=== PATIENT | male | born 1955 | race Caucasian/White ===

== ENCOUNTER 2024-01-10 06:23 | Day surgery (SDC) | payer OTHER, SELFPAY ==
[2023-12-26 10:15] VITALS: BMI 26.6
[2023-12-26 10:38] LABS: % Basophils 0.7 % (0-2); % Eosinophils 1.6 % (0-6); % Immature Granulocytes 0.3 % (0-0.5); % Lymphocytes 30.9 % (20.5-51.1); % Monocytes 9.2 % (1.7-9.3); % Neutrophils 57.3 % (42.2-75.2); Absolute Basophils 0.1 10^3/uL (0-0.2); Absolute Eosinophils 0.1 10^3/uL (0-0.7); Absolute Lymphocytes 2.1 10^3/uL (1.2-3.4); Absolute Monocytes 0.6 10^3/uL (0.1-0.6); Absolute Neutrophils 3.9 10^3/uL (1.4-6.5); Hematocrit 46.2 % (39.0-52.0); Hemoglobin 16.8 g/dL (13.0-18.0); Mean Corp Hgb Conc. 36.4 g/dL (33.0-37.0); Mean Corpuscular Hgb 33.5 pg (27.0-31.0); Mean Platelet Volume 9.4 fL (7.4-10.4); Nucleated Red Blood Cells % 0 % (-); Platelet Count 198 10^3/uL (130-400); Red Blood Cell Count 5.02 10^6/uL (4.70-6.10); Red Cell Dist. Width 12.3 % (11.5-14.5); White Blood Cell Count 6.8 10^3/uL (4.8-10.8)
[2023-12-26 10:51] LABS: ALT (SGPT) 25 U/L (0-50); AST (SGOT) 27 U/L (17-59); Albumin 4.2 g/dl (3.5-5.0); Alkaline Phosphatase 68 U/L (38-126); Blood Urea Nitrogen 13 mg/dl (9-20); Calcium 9.3 mg/dl (8.4-10.2); Carbon Dioxide 24 mmol/L (22-30); Chloride 109 mmol/L (98-107); Estimated Creatinine Clearance 50 ml/min; Glucose 103 mg/dl (70-99); Potassium 4.3 mmol/L (3.5-5.1); Sodium 140 mmol/L (135-145); Total Bilirubin 1.3 mg/dl (0.2-1.3); Total Protein 7.1 g/dl (6.3-8.2); eGFR > 60.00
[2024-01-10] VITALS (9 sets, daily range): BP systolic 95–156; BP diastolic 65–87; BMI 26.6
--- NOTE | 2024-01-10 07:00 | ITS.CL.CATH ---
Child'S Nurse - Catheterization
Cardiac Catheterization
Procedure Report:
CARDIAC CATHETERIZATION REPORT
Date of Procedure: 01/10/2024
Referring: Shala Denney MD
Indication: Severe , chest pain with abnormal stress test
HEMODYNAMIC DATA
AO: 122/72
LV: Not done
LEFT VENTRICULOGRAPHY: Not performed. There is severe calcification of the aortic annulus and leaflets noted on fluoroscopy
CORONARY ANGIOGRAPHY
Dominance: Right
Left Main: Normal
LAD: Smooth 70-80% mid LAD stenosis immediately distal to the takeoff of the large second diagonal branch. The remainder of the LAD proper has mild luminal irregularities. The large D1 has 30% proximal stenosis.
Circumflex: Small distribution vessel giving rise to a small OM1, a medium sized OM 2 and a small OM 3. There is no significant disease in the circumflex system.
RCA: Large dominant vessel with an eccentric 70% mid RCA stenosis on a highly angulated segment. The large PDA and large posterolateral system have mild luminal irregularities.
Closure Device: None-the procedure was performed via the right radial artery. The Basil's test was normal prior to the procedure.
Radiation (mGy): 446
DAP (cm2.Gy): 50.6
Fluoroscopy time: 9.7 minutes
CONCLUSIONS
1: Severe aortic stenosis (mean gradient 55 mmHg by echo) not invasively evaluated.
2: Double vessel CAD as described
3. Recommend surgical AVR/CABG x 2 (LAD, RCA)
4. The patient has been strongly advised to avoid all strenuous activity until cardiac surgery has been accomplished
Copy to: Shala Denney MD, Paul Sparks MD
Skinny Ferguson MD, [facility], [facility]
[2024-01-10] MEDS: LOW STRENGTH ASPIRIN 81 MG PO (07:05)
[2024-01-10] MEDS: NSS 204 ML IV (07:08)
== END 2024-01-10 11:00 | disposition home or self-care (01) ==
LOC: CATH 06:23
PROVIDERS: ATTENDING PHYSICIAN Internal Medicine Cardiovascular Disease; OTHER PHYSICIAN Internal Medicine Cardiovascular Disease
DX: I35.0 Nonrheumatic aortic (valve) stenosis (principal); I25.10 Atherosclerotic heart disease of native coronary artery without angina pectoris; I10 Essential (primary) hypertension; E78.5 Hyperlipidemia, unspecified; M10.9 Gout, unspecified; K57.90 Diverticulosis of intestine, part unspecified, without perforation or abscess without bleeding; R07.9 Chest pain, unspecified; R94.39 Abnormal result of other cardiovascular function study
CPT/HCPCS: 36415; 80053; 85025; 93005; 93306; 93454; C1894; Q9967

== ENCOUNTER 2024-02-13 04:58 | Inpatient (IN) | payer OTHER, SELFPAY ==
[2024-01-24 11:58] VITALS: BMI 26.9
[2024-01-24 12:52] LABS: % Basophils 0.6 % (0-2); % Eosinophils 1.2 % (0-6); % Immature Granulocytes 0.5 % (0-0.5); % Lymphocytes 25.1 % (20.5-51.1); % Monocytes 8.1 % (1.7-9.3); % Neutrophils 64.5 % (42.2-75.2); Absolute Eosinophils 0.1 10^3/uL (0-0.7); Absolute Lymphocytes 1.6 10^3/uL (1.2-3.4); Absolute Monocytes 0.5 10^3/uL (0.1-0.6); Absolute Neutrophils 4.1 10^3/uL (1.4-6.5); Hematocrit 41.3 % (39.0-52.0); Hemoglobin 14.8 g/dL (13.0-18.0); Mean Corp Hgb Conc. 35.8 g/dL (33.0-37.0); Mean Corpuscular Hgb 32.4 pg (27.0-31.0); Mean Corpuscular Volume 90.4 fL (80.0-94.0); Mean Platelet Volume 9.6 fL (7.4-10.4); Nucleated Red Blood Cells % 0 % (-); Platelet Count 193 10^3/uL (130-400); Red Blood Cell Count 4.57 10^6/uL (4.70-6.10); Red Cell Dist. Width 12.5 % (11.5-14.5); White Blood Cell Count 6.4 10^3/uL (4.8-10.8)
[2024-01-24 12:57] LABS: Urine Albumin Negative (Neg - Trace); Urine Bilirubin Negative (Negative); Urine Character Clear (Clear); Urine Color Yellow; Urine Glucose Negative (Negative); Urine Ketone Negative (Negative); Urine Leukocyte Negative (Negative); Urine Nitrite Negative (Negative); Urine Occult Blood Negative (Negative); Urine Urobilinogen Negative (Neg - 1+)
[2024-01-24 13:02] LABS: INR 1.08; PT 13.8 Sec (11.4-14.6)
[2024-01-24 13:04] LABS: APTT 25.4 Sec (23.4-35.0)
[2024-01-24 13:05] LABS: ALT (SGPT) 27 U/L (0-50); AST (SGOT) 33 U/L (17-59); Albumin 4.3 g/dl (3.5-5.0); Alkaline Phosphatase 67 U/L (38-126); Blood Urea Nitrogen 11 mg/dl (9-20); Carbon Dioxide 26 mmol/L (22-30); Chloride 108 mmol/L (98-107); Direct Bilirubin 0.1 mg/dl (0.0-0.4); Estimated Creatinine Clearance 55 ml/min; Glucose 91 mg/dl (70-99); Potassium 3.7 mmol/L (3.5-5.1); Sodium 140 mmol/L (135-145); Total Bilirubin 1.5 mg/dl (0.2-1.3); Total Protein 7.2 g/dl (6.3-8.2); eGFR > 60.00
[2024-01-24 13:08] LABS: Glycohemoglobin (HgbA1c) 5.6 % (4.0-5.6)
--- NOTE | 2024-01-24 13:48 | CM ---
Met with Mr. Jimbo Adams in [facility]. He states prior to admission he resides alone in a spilt level home. He states he has six steps to get to each level. His bedroom and full bathroom are on the second floor. He states prior to admission he was
independent with ambulation and adls. He states prior to admission he does not have any DME in the home. He states he has a prescription plan and uses [facility]. He states his girlfriend and friends he can call if he will needs anything.
The discharge plan is to return home with her girlfriend and friends support and a home visit by the Cardiothoracic Transitional Care Nurse when medically stable.
We reviewed pre-op and post-op routines. We reviewed the shower instructions. He has the soap, written instructions and the Cardiothoracic Surgery Educational Booklet. We also reviewed restrictions including sternal precautions and driving
restrictions. We also discussed a home visit by the Cardiothoracic Transitional Care Nurse. He is agreeable to a home visit. The plan is AVR/CABG on Tuesday02/13/24
[2024-02-13] VITALS (17 sets, daily range): BP systolic 83–191; BP diastolic 65–127; BMI 26.3
[2024-02-13] MEDS: PROTONIX 40 MG PO (05:51)
[2024-02-13] MEDS: LOPRESSOR 25 MG PO (05:52)
[2024-02-13] MEDS: BACTROBAN 2% OINTMENT 1 APPLIC NASAL ×2 (05:52→19:59)
[2024-02-13] MEDS: MAGNESIUM OXIDE 500 MG PO (05:52)
--- NOTE | 2024-02-13 06:06 | PTCARENOTE ---
pt admitted to 2262 - admits NPO since midnight and 2 CHG showers at home. full admission done, BP high B/L PA notified. pt clipped, washed with CHG wipes, meds given. awaiting CVOR.
[2024-02-13 07:06] LABS: ACT+ - POC 104 Seconds (82-134)
[2024-02-13 07:09] LABS: B.E. - POC -3.8 mmol/L; Glucose - POC 108 mg/dl (65-99); HCO3 - POC 22 mmol/L (21-29); Hematocrit - POC 38 % PCV (42-52); Hemodilution- POC Yes; Ionized Calcium - POC 1.15 mmol/L (1.12-1.27); O2 Saturation %Calculated-POC 99.9 5 (92-96); PCO2 - POC 44 mmHg (35-45); PO2 - POC 299 mmHg (80-100); Potassium - POC 3.6 mmol/L (3.6-5.0); Sodium - POC 146 mmol/L (135-145); pH - POC 7.32 (7.35-7.45)
[2024-02-13 07:50] LABS: Urine Albumin Negative (Neg - Trace); Urine Bilirubin Negative (Negative); Urine Character Clear (Clear); Urine Color Yellow; Urine Glucose Negative (Negative); Urine Ketone Negative (Negative); Urine Leukocyte Negative (Negative); Urine Nitrite Negative (Negative); Urine Occult Blood Negative (Negative); Urine Urobilinogen Negative (Neg - 1+)
[2024-02-13 09:17] LABS: ACT+ - POC 584 Seconds (82-134)
[2024-02-13 09:52] LABS: B.E. - POC 1.5 mmol/L; Glucose - POC 118 mg/dl (65-99); HCO3 - POC 25 mmol/L (21-29); Hematocrit - POC 30 % PCV (42-52); Hemodilution- POC Yes; Hemoglobin Calculated - POC 10.3; Ionized Calcium - POC 0.91 mmol/L (1.12-1.27); O2 Saturation %Calculated-POC 99.9 5 (92-96); PCO2 - POC 36 mmHg (35-45); PO2 - POC 239 mmHg (80-100); Potassium - POC 5.9 mmol/L (3.6-5.0); Sodium - POC 141 mmol/L (135-145); pH - POC 7.46 (7.35-7.45)
[2024-02-13 10:01] LABS: ACT+ - POC 777 Seconds (82-134)
[2024-02-13 10:23] LABS: B.E. - POC 1.6 mmol/L; Glucose - POC 129 mg/dl (65-99); HCO3 - POC 26 mmol/L (21-29); Hematocrit - POC 30 % PCV (42-52); Hemodilution- POC Yes; Hemoglobin Calculated - POC 10.1; Ionized Calcium - POC 0.98 mmol/L (1.12-1.27); PCO2 - POC 36 mmHg (35-45); PO2 - POC 351 mmHg (80-100); Potassium - POC 6.2 mmol/L (3.6-5.0); Sodium - POC 142 mmol/L (135-145); pH - POC 7.45 (7.35-7.45)
[2024-02-13 10:28] LABS: ACT+ - POC 605 Seconds (82-134)
[2024-02-13 11:03] LABS: B.E. - POC 1.4 mmol/L; Glucose - POC 147 mg/dl (65-99); HCO3 - POC 24 mmol/L (21-29); Hematocrit - POC 30 % PCV (42-52); Hemodilution- POC Yes; Hemoglobin Calculated - POC 10.2; Ionized Calcium - POC 0.95 mmol/L (1.12-1.27); PCO2 - POC 28 mmHg (35-45); PO2 - POC 319 mmHg (80-100); Potassium - POC 5.5 mmol/L (3.6-5.0); Sodium - POC 141 mmol/L (135-145); pH - POC 7.53 (7.35-7.45)
[2024-02-13 11:04] LABS: ACT+ - POC 493 Seconds (82-134)
--- NOTE | 2024-02-13 11:08 | CM ---
Addendum entered by Ramonita Quezada RN 02/13/24 11:14:
Patient is in the OR today
Original Note:
Chart reviewed. Patient is independent of ADLS, lives alone in a split level, 6 SHIRIN, 0 DME. Patient with supportive girlfriend and friends. Plan is for the patient to return home CT Transitional RN. CM to follow
[2024-02-13 11:37] LABS: Glucose - POC 148 mg/dl (65-99); HCO3 - POC 22 mmol/L (21-29); Hematocrit - POC 28 % PCV (42-52); Hemodilution- POC Yes; Hemoglobin Calculated - POC 9.6; Ionized Calcium - POC 0.99 mmol/L (1.12-1.27); PCO2 - POC 31 mmHg (35-45); PO2 - POC 405 mmHg (80-100); Potassium - POC 4.8 mmol/L (3.6-5.0); Sodium - POC 141 mmol/L (135-145); pH - POC 7.46 (7.35-7.45)
[2024-02-13 11:41] LABS: ACT+ - POC 476 Seconds (82-134)
[2024-02-13 12:33] LABS: ACT+ - POC 112 Seconds (82-134)
[2024-02-13 12:35] LABS: B.E. - POC -4.6 mmol/L; Glucose - POC 138 mg/dl (65-99); HCO3 - POC 20 mmol/L (21-29); Hematocrit - POC 26 % PCV (42-52); Hemodilution- POC Yes; Hemoglobin Calculated - POC 8.9; Ionized Calcium - POC 1.46 mmol/L (1.12-1.27); O2 Saturation %Calculated-POC 99.9 5 (92-96); PCO2 - POC 36 mmHg (35-45); PO2 - POC 285 mmHg (80-100); Potassium - POC 3.8 mmol/L (3.6-5.0); Sodium - POC 144 mmol/L (135-145); pH - POC 7.36 (7.35-7.45)
--- NOTE | 2024-02-13 13:14 | W.CVOR.SURPR ---
CVOR Surgeon Immed Pre Op
-
I have examined this patient prior to performance of the scheduled procedure.
The patient's condition is unchanged from the time of the dictated/written History and
Physical and the patient is able to undergo the scheduled procedure.
--- NOTE | 2024-02-13 13:14 | W.IMMPOSTOP ---
Addendum entered and electronically signed by Paul Sparks MD 02/13/24 14:32:
[id number]
Original Note:
Surgical Immed Post Op Note
-
CARDIAC SURGERY OPERATIVE NOTE:
Preoperative Dx:
2V CAD
Severe aortic stenosis
Postoperative Dx:
Same
Procedures:
1) Median sternotomy
2) Takedown of KATEY (narrow pedicle)
3) Endoscopic harvest/prep of RLE GSV
4) CABG x 2
5) AVR (#27 Inspiris)
Surgeon:
Paul Sparks M.D.
Assistants:
Brianne Gee P.A.-C.; cutting table operator first throughout; endoscopic harvest/prep of RLE GSV, chest closure ([id number])
Shabbir Rosario P.A.-C.; closure of RLE incisions; chest closure ([id number])
Anesthesia:
Mauricio Barker M.D.
Perfusion:
Kristy CristobalPSoraya; XC: 131min, CPB: 155min
Implants:
Monae [employer], INSPIRIS RESILIA; 27mm, Model [id number]; SN: [id number]
Epicardial V-wire x 1
CT x 4 (B/L pleural, inferior mediastinal, superior mediastinal)
Sternal wires x 10
Findings:
KATEY was healthy vessel w/ very brisk flow; ELD 1.5mm
GSV was healthy conduit w/ ELD 2.5-3.25mm
Apical LAD was visible on epicardial surface, mid-LAD was under approximately 7.5mm of epicardial adipose. Healthy adames at midpoint anastomosis. ELD 2.5mm
PDA was visible on epicardial surface, healthy adames at proximal anastomosis. ELD 2.25mm
AV was trileaflet w/ extensive leaflet calcifications. The RCC and LCC had partial fusion along the commissure. There was minor circumferential annular extension
AVR secured w/ 19 - interrupted, pledgetted sutures & CorKnot
Post-KHADAR w/ LVEF 50% (unchanged) w/o RWMA, AVR is well-seated w/o PVL/AI, mean gradient 4mmHg, trace MR, normal RV
Excellent flow in both grafts
Complications:
None
Condition:
72 sinus w/ isoelectric STs. 96/63. 31/18. CVP 14. 99%
GTTS: dobutmine 3, levophed 3
Stable/guarded to CVICU
[2024-02-13 13:32] LABS: B.E. - POC -2.2 mmol/L; Glucose - POC 110 mg/dl (65-99); HCO3 - POC 24 mmol/L (21-29); Hematocrit - POC 25 % PCV (42-52); Hemodilution- POC No; Hemoglobin Calculated - POC 8.4; Ionized Calcium - POC 1.22 mmol/L (1.12-1.27); O2 Saturation %Calculated-POC 62.8 5 (92-96); PCO2 - POC 46 mmHg (35-45); PO2 - POC 35 mmHg (80-100); Potassium - POC 3.9 mmol/L (3.6-5.0); Sodium - POC 146 mmol/L (135-145); pH - POC 7.33 (7.35-7.45)
[2024-02-13 13:55] LABS: Glucose - Point of Care 113 mg/dl (70-99)
[2024-02-13 14:07] LABS: B.E. -0.7 mmol/L; HCO3 22.9 mmol/L (21-28); Ionized Calcium 1.17 mMOL/L (1.15-1.33); O2 Saturation % 99.8 % (94-98); PCO2 33 mmHg (35-48); PO2 160 mmHg (83-108); Potassium 3.9 mMOL/L (3.5-5.1); Sodium 142 mMOL/L (136-145); pH 7.45 (7.35-7.45)
[2024-02-13 14:10] LABS: Hematocrit 25.4 % (39.0-52.0); Hemoglobin 9.2 g/dL (13.0-18.0); Platelet Count 78 10^3/uL (130-400)
--- NOTE | 2024-02-13 14:12 | PTCARENOTE ---
received pt from the CVOR into 2261, pt received intubated and sedated, sinus rhythm on tele w HR 80's, epicardial V wire for backup, + peripheral pulses, no edema noted. Lungs CTA, #8 ETT/23cm @ right lip. VENT SETTINGS: 60%/500/15/+5, POX 99%.
Right IJ cordis w swan floated to 46, CO 2.82 CI 1.66 PAP 30/19, CVP 15. Left radial carolina leveled and zeroed. CT x4 w minimal amount of red drainage, campuzano catheter draining pink tinged urine.
DRIPS:
Precedex 0.5mcg/kg/hr
Dobutamine 3mcg/kg/min
Insulin titrated per glycemic protocol
[2024-02-13 14:21] LABS: INR 1.75; PT 20.2 Sec (11.4-14.6)
[2024-02-13 14:22] LABS: APTT 30.9 Sec (23.4-35.0)
[2024-02-13] MEDS: ANCEF 10 IV ×2 (14:27)
[2024-02-13] MEDS: NEURONTIN PO ×2 (14:28→15:22)
[2024-02-13] MEDS: CRESTOR PO (14:28)
[2024-02-13] MEDS: TYLENOL PO (14:29)
[2024-02-13] MEDS: NSS 500 IV (14:29)
[2024-02-13] MEDS: ALBUMIN 5% 250 IV ×2 (14:29→16:41)
[2024-02-13] MEDS: KCL 50 IV ×2 (14:29→15:13)
[2024-02-13 14:32] LABS: Blood Urea Nitrogen 11 mg/dl (9-20); Estimated Creatinine Clearance 61 ml/min; Glucose 109 mg/dl (70-99); Magnesium 2.7 mg/dl (1.6-2.3)
--- NOTE | 2024-02-13 14:45 | CON.INTV ---
Consultation
Consultation Request
Date/Time Consultation Requested: 02/12
Date/Time Consultation Performed: 02/12
Reason for Consultation: Critical care
Medical History
-
History of Present Illness:
History obtained from the chart as patient currently intubated and sedated. 68-year-old male with severe aortic stenosis, coronary disease presents for CAB x 2, bioprosthetic AVR without complication. Has not required blood products. Presently on
dobutamine, norepinephrine. Patient remains on insulin drip for hyperglycemia. Patient currently sedated with Precedex on volume-cycled ventilation. V wires in place. We are asked to help from critical care standpoint
.
PMH: Hypertension, osteoarthritis, hyperlipidemia, diverticulosis, coronary disease with aortic stenosis, appendectomy with bowel resection secondary to diverticulitis
Past Medical History
Past Medical History: None (See above)
Past Surgical History: None (See above)
Social History
Tobacco: Non-smoker
Alcohol: Daily (2-3 beers a day)
Personal: Single
Living: Alone
Employment: Retired (Work with medical equipment, HD cath)
Family History
Family History: Other (Father with heart disease, mother with questionable stroke at 63. 1 brother at age 49 unknown cause. No children)
Allergies / Home Medications
Allergies
Allergy/AdvReac Type Severity Reaction Status Date / Time
No Known Allergies Allergy Unverified 01/20/24 09:03
Home Medications
�Medication �Instructions �Recorded �Confirmed �Last Taken �Type
Brain Health 1 dose PO DAILY 12/23/23 02/13/24 02/12/24 06:00 History
aspirin 81 mg chewable tablet 81 mg PO DAILY 12/23/23 02/13/24 02/12/24 06:00 History
losartan 25 mg tablet 25 mg PO DAILY 12/23/23 02/13/24 02/12/24 06:00 History
rosuvastatin 20 mg tablet 20 mg PO DAILY 12/23/23 02/13/24 02/12/24 06:00 History
Review of Systems
-
Unable to Obtain full review of systems at this time due to: Patient Intubation
Vitals / Labs / Diagnostic Testing
Vital Signs
Temp Pulse Resp BP Pulse Ox
96 F L 80 16 131/94 97
02/13/24 14:00 02/13/24 14:30 02/13/24 14:30 02/13/24 14:00 02/13/24 14:30
Lab Data
02/13/24 13:52
Laboratory Results
02/13/24
13:52
pH 7.45
pCO2 33 L
pO2 160 H
HCO3 22.9
O2 Delivery Level
Diagnostic Testing:
Physical Exam
-
HEENT: Normocephalic, Anicteric and Other (Right IJ, right upper extremity A-line, chest tube)
Cardiovascular: S1/S2, Regular Rhythm, Murmur (n), Rub (n) and Peripheral Edema (n)
Respiratory: Wheeze (n), Rales (n), Rhonchi (n), Non-Labored Respirations and Other (ET tube)
GI: Soft and Non Distended
Neurology: Other (Sedated)
Skin: Good Color and Other (No rash)
General: Comfortable and Other (Chest tube with minimal drainage, no airleak)
Assessment
-
68-year-old male with history of aortic stenosis/coronary disease status post bioprosthetic AVR/CAB x 12/15/2023 without complication. We are asked to help from critical care standpoint 02/12/22
S/p AVR/CAB x 2
Severe aortic stenosis
Normal EF, normal PA pressure
Postoperative anemia
Daily alcohol use
Right bundle branch block
Hypertension/hyperlipidemia
Family history of heart disease
MRSA colonized
Plan/recommendations
At this time, patient is critically ill but stable
Remains on volume-cycled ventilation, adequate oxygenation/ventilation
Airway pressures adequate
Postoperative EKG with right bundle branch block
Postoperative chest x-ray chest tube in place, no pneumothorax, ET tube appropriate
Moving forward
Continue with management per CT surgery
Presently on norepinephrine, dobutamine
Chest tube output minimal
Follow hemoglobin, follow platelets
follow blood sugars
Anticipate extubation later today
Remains on insulin drip, Precedex
Preoperative spirometry is normal
Reviewed with critical care nursing
TCCT 31 min
--- NOTE | 2024-02-13 14:52 | W.PN.CD ---
Today's Communication / Plan
-
Routine post-op care
wean dobutamine as able
Impression / Plan
-
68-year-old male with past medical history of hypertension, hyperlipidemia, gout, alcohol abuse, and severe who is here for AVR plus CABG now out of the OR. He remains on dobutamine and is intubated/sedated.
Severe status post AVR with Monae Inspiris Resilia 27 mm valve and CABG x 2 HOWARD to LAD and SVG to PDA
- wean dobutamine as able
- aspirin when OK from surgical perspective
- holding anti-htn for now
HLD
- rosuvastatin when able to tolerate PO
Physical Exam
Vital Signs/Labs
Vital Signs
Temp Pulse Resp BP Pulse Ox
96 F L 80 16 131/94 98
02/13/24 14:00 02/13/24 14:30 02/13/24 14:30 02/13/24 14:00 02/13/24 14:49
02/12/24 02/13/24 02/14/24
06:59 06:59 06:59
Actual Weight 148 lb 2.41 oz
02/13/24 13:52
PT 13.8 Sec (11.4-14.6) 01/24/24 12:07
INR 1.08 01/24/24 12:07
APTT 25.4 Sec (23.4-35.0) 01/24/24 12:07
Magnesium 2.7 mg/dl (1.6-2.3) H 02/13/24 13:52
Physical Exam
Constitutional: No acute distress
EENT: Anicteric
Cardiovascular: Rhythm & rate is regular and Pedal edema is absent
Respiratory: Respiratory effort normal and Lungs clear to auscul.
GI: Soft
Neuro/Psych: Other (intubated and sedated )
Data Reviewed
-
Date of Service: February 13, 2024
EKG: Tracing Personally Visualized and interpreted (SR)
Echo: Report Reviewed by me
Medical Tests (PFT, Pathology etc): Report Reviewed by me
Labs: Labs Reviewed by me
[2024-02-13 15:18] LABS: Glucose - Point of Care 105 mg/dl (70-99)
[2024-02-13] MEDS: PACERONE PO (15:22)
--- NOTE | 2024-02-13 15:28 | PTCARENOTE ---
Dr. Sparks at bedside, pt woke up- opened eyes spontaneously, SOLIS to command.
--- NOTE | 2024-02-13 15:51 | W.PN.UPDATE ---
Update Note
Progress Note Update
IV fluids: 1300
U.O.:� 500
Blood:� none
Wires:� V-wires
Inotropes:� Dobutamine
Pressors:� Levophed
Sedatives:� Precedex
�
NEURO: sedated on Precedex, pupils +2mm B/L
RESP: #8OT @22cm>16/500/60/5; Lungs clear B/L. 2 mediastinal (10cc on arrival) and L pleural (0cc on arrival) chest tubes to -20cm suction. Sanguineous drainage
CV: RRR +S1, S2, no S3, no�rub, no murmur. Dermabond to median sternotomy. RIJ w/swan
ABD: round, soft, no BS
EXT: no edema, +2/4 DP pulses B/L, no femoral bruit, left radial A-line intact
: Sheth with clear yellow urine
�
A/P: POD #0 s/p CABG x2 and AVR #27 inspiris
KHDAAR: EF�50%, trace MR
- wean and extubate
# CAD
- will require ASA/Plavix, high intensity statin, beta-claudy
- will start ASA once awake
�
# acute surgical blood loss anemia-expected
- Hb 10.4
- trend CBC
�
# post-operative hyperglycemia
- insulin infusion x 24h
- Hgb a1c 5.6
[2024-02-13] MEDS: CALCIUM CHLORIDE 10% SYRINGE 50 MG IV (16:06)
[2024-02-13] MEDS: CALCIUM CHLORIDE 10% SYRINGE 50 ML IV (16:06)
--- NOTE | 2024-02-13 16:20 | PTCARENOTE ---
pt placed on CPAP wean by RT
[2024-02-13 16:21] LABS: Glucose - Point of Care 125 mg/dl (70-99)
[2024-02-13 16:51] LABS: B.E. -3.9 mmol/L; HCO3 22.6 mmol/L (21-28); Ionized Calcium 1.33 mMOL/L (1.15-1.33); O2 Saturation % 95.8 % (94-98); PCO2 47 mmHg (35-48); PO2 72 mmHg (83-108); Potassium 4.7 mMOL/L (3.5-5.1); Sodium 143 mMOL/L (136-145); pH 7.29 (7.35-7.45)
--- NOTE | 2024-02-13 17:04 | PTCARENOTE ---
ABG result reviewed w CT MANAGER SUBWAY, pt to remains on wean, will recheck ABG at 17:30
[2024-02-13] MEDS: OFIRMEV 100 IV (17:05)
[2024-02-13 17:15] LABS: Glucose - Point of Care 115 mg/dl (70-99)
--- NOTE | 2024-02-13 17:29 | PTCARENOTE ---
pt placed back on SIMV by RT per CT SECTION 8 PROPERTY MANAGER. PEEP increased to 8.
[2024-02-13 17:53] LABS: Hematocrit 22.5 % (39.0-52.0); Platelet Count 87 10^3/uL (130-400)
--- NOTE | 2024-02-13 17:55 | PTCARENOTE ---
CPAP wean restarted 40% 8/5, pox 96%
[2024-02-13 18:19] LABS: Glucose - Point of Care 102 mg/dl (70-99)
[2024-02-13 18:24] LABS: B.E. -3.4 mmol/L; HCO3 21.3 mmol/L (21-28); Ionized Calcium 1.33 mMOL/L (1.15-1.33); PCO2 36 mmHg (35-48); PO2 84 mmHg (83-108); Potassium 4.7 mMOL/L (3.5-5.1); Sodium 143 mMOL/L (136-145); pH 7.38 (7.35-7.45)
--- NOTE | 2024-02-13 18:35 | RESPNOTE ---
pt extubated to 6 lpm of nasal cannula. sats of 95% noted
--- NOTE | 2024-02-13 18:37 | PTCARENOTE ---
PT WAS EXTUBATED TO 6L NC, POX 95%
[2024-02-13] MEDS: ANCEF 5 IV (19:02)
[2024-02-13] MEDS: LOW STRENGTH ASPIRIN 81 MG PO (19:59)
[2024-02-13] MEDS: DILAUDID 0.25 MG IV (19:59)
--- NOTE | 2024-02-13 20:00 | PTCARENOTE ---
assumed care of pt from previous RN. pt A&Ox4. R IJ cordis w/ swan floated to 44cm. L radial a-line. all lines leveled, zeroed, flushed. levo, dobutamine, insulin infusing. SR on tele-monitor. HR 80-90s. temp epicardial v-wires w/ backup settings
VVI 30/5/1.5. POX 96% on [address] x4 (mediastinal x2, R & L pleural) to -20cm wall suction. no air leak noted. pt tolerating ice chips at this time. campuzano catheter draining blood-tinged urine w/ sediment. all surgical sites stable, CDI. PIV
intact. see worklist for complete nursing assessment, interventions, VS, and I&Os.
[2024-02-13 20:20] LABS: Glucose - Point of Care 104 mg/dl (70-99)
[2024-02-13 20:44] LABS: Hematocrit 22.4 % (39.0-52.0); Hemoglobin 8.2 g/dL (13.0-18.0); Mean Corp Hgb Conc. 36.6 g/dL (33.0-37.0); Mean Corpuscular Hgb 33.5 pg (27.0-31.0); Mean Corpuscular Volume 91.4 fL (80.0-94.0); Mean Platelet Volume 9.6 fL (7.4-10.4); Platelet Count 100 10^3/uL (130-400); Red Blood Cell Count 2.45 10^6/uL (4.70-6.10); Red Cell Dist. Width 12.4 % (11.5-14.5); White Blood Cell Count 14.3 10^3/uL (4.8-10.8)
[2024-02-13] MEDS: ZOFRAN 4 MG IV (21:11)
[2024-02-13] MEDS: SENOKOT-S PO (21:15)
[2024-02-13 22:14] LABS: Glucose - Point of Care 114 mg/dl (70-99)
[2024-02-13] MEDS: DILAUDID 0.5 MG IV (22:17)
[2024-02-13] MEDS: TYLENOL 1000 MG PO (23:34)
[2024-02-13] MEDS: NEURONTIN 100 MG PO (23:34)
[2024-02-13 23:45] LABS: Glucose - Point of Care 113 mg/dl (70-99)
[2024-02-14] VITALS (41 sets, daily range): BP systolic 77–143; BP diastolic 47–106; BMI 27.3
--- NOTE | 2024-02-14 | PTCARENOTE ---
pt reassessed. levo requirement increasing. pain management. CT drainage WNL. U/O >0.5ml/kg/hr at this time. see worklist for VS and hourly I&Os.
[2024-02-14] MEDS: ROXICODONE 5 MG PO ×2 (01:10→05:59)
[2024-02-14] MEDS: LEVOPHED 250 IV (01:10)
[2024-02-14 01:57] LABS: Glucose - Point of Care 103 mg/dl (70-99)
--- NOTE | 2024-02-14 03:43 | W.PN.CT ---
Addendum entered and electronically signed by Paul Sparks MD 02/14/24 08:27:
I saw and examined the patient.
The PA's note was reviewed and I agree with the note.
Comment:
POD#1 s/p AVR (#27 Inspiris) and CABG x 2 (KATEY to LAD, GSV to PDA)
Doing well. Looks good this AM.
- Transfuse 1U PRBC
- Wean dobutamine and levophed as tolerated
- OOB/IS
- Maintain campuzano - follow UO in setting of minor MONICA (creat 1.6); diuresis
- Maintain CTs today
Original Note:
Today's Communication / Plan
-
Plan:
-No major issues overnight. Neurologically intact
-Successfully extubated on 02/13/24 @ 1835
-On Levophed @ 4 mcg/min, dobutamine @ 3 mcg/kg/min and insulin gtt per protocol
-Last CI 2.24, mixed venous O2 54.5%, U/O since OR
-Cont. current meds (ASA, Amiodarone, Lopressor -hold while on dobutamine/Levophed, Crestor; will add Plavix)
-Consider at least 1u PRBC, h/h 7.5/21.7
-Platelets 78K this AM, will discuss holding both ASA and Plavix
-Monitor cr 1.6, was 0.9 preop
-Monitor chest tube output: 2 meds 125/305, R/L pls 90/220
-D/C swan and a-line once able to wean off Levophed and dobutamine gtts
-Transfer to tele phase once off insulin gtt
-Keep campuzano catheter another day given MONICA
-Maintain temporary pacer (will cut before d/c home)
-Encourage use of IS
-Wean off of O2
-OOB into chair
-Ambulate
Assessment / Plan
-
Assessment:
-S/P AVR (#27 Inspiris)/CABG x 2 (HOWARD-LAD, SVG - PDA)/R EVH, by Dr. Sparks, 02/13/24, pod#1
-Severe
-Severe 2v CAD
-LVEF 35-40% preop, improved to 55% postop per intraop KHADAR
-HTN
-Hyperlipidemia
-Gout
-Osteoarthritis
-Hx Diverticulitis S/P bowel resection
-S/p rotator cuff repair
-S/p appendectomy
-Acute postop blood loss/Anemia (stable without blood transfusion)
-Acute postop thrombocytopenia (stable without active bleed)
-Acute postop atelectasis
-Acute postop hypovolemia with subsequent hypervolemia
-Acute postop MONICA, 1.6
Discussed patient care with: Cardiology, Nursing, Respiratory Therapy, Pharmacy and Care Team
Subjective
Procedure
S/P AVR (#27 Inspiris)/CABG x 2 (HOWARD-LAD, SVG - PDA)/R EVH, by Dr. Sparks, 02/13/24, pod#1
-
Date of Service: February 14, 2024
Pt c/o incisional pain, otherwise feels well
Objective Data
-
PT 20.2 Sec (11.4-14.6) H 02/13/24 13:52
INR 1.75 02/13/24 13:52
APTT 30.9 Sec (23.4-35.0) 02/13/24 13:52
Vital Signs
Vital Signs
Temp Pulse Resp BP Pulse Ox
98.9 F 92 12 94/75 93
02/14/24 03:00 02/14/24 03:00 02/14/24 03:00 02/14/24 03:00 02/14/24 03:00
CT Intake/Output/Weight
02/13/24 02/13/24 02/14/24
06:59 18:59 06:59
Intake Total 575.1 / 1015.3 440.2 / 1015.3
Output Total 765 / 1200 435 / 1200
Balance -189.9 / -184.7 5.2 / -184.7
SaO2: 93 (4L)
Physical Exam
-
General: Awake, Oriented and AOx3
Cardiovascular: Regular rate & rhythm, No Murmurs, Rub and No Gallop
Respiratory: Decreased Breath Sounds (at basess with basilar crackles)
Sternum: Stable
Incision: Clean, Dry, Intact and Dressing Intact
Extremities: No Edema
Data Reviewed
-
Lab Results: Results Reviewed
Medications: Active Meds Reviewed
Chest X-Ray: Report Reviewed and Image Reviewed
ECG: Report Reviewed and Image Reviewed
--- NOTE | 2024-02-14 04:00 | PTCARENOTE ---
assessment remains unchanged. SR on tele-monitor. HR 80s-90s. levo, dobutamine, insulin infusing. CT drainage WNL. U/O <0.5ml/kg/h. see worklist for VS, hourly I&Os, and gtt titrations. AM labs collected and sent. AM EKG completed.
[2024-02-14 04:04] LABS: Glucose - Point of Care 113 mg/dl (70-99)
[2024-02-14] MEDS: ANCEF 5 IV ×2 (04:04→11:30)
[2024-02-14 04:08] LABS: Mixed Venous O2 Saturation 54.5 %
[2024-02-14 04:12] LABS: Hematocrit 21.7 % (39.0-52.0); Hemoglobin 7.5 g/dL (13.0-18.0); Mean Corp Hgb Conc. 34.6 g/dL (33.0-37.0); Mean Corpuscular Hgb 32.9 pg (27.0-31.0); Mean Corpuscular Volume 95.2 fL (80.0-94.0); Mean Platelet Volume 10.1 fL (7.4-10.4); Platelet Count 78 10^3/uL (130-400); Red Blood Cell Count 2.28 10^6/uL (4.70-6.10); Red Cell Dist. Width 12.7 % (11.5-14.5); White Blood Cell Count 15.7 10^3/uL (4.8-10.8)
[2024-02-14 04:21] LABS: INR 1.24; PT 15.4 Sec (11.4-14.6)
[2024-02-14] MEDS: FLEXERIL 5 MG PO ×2 (04:32→19:53)
[2024-02-14 04:35] LABS: Blood Urea Nitrogen 20 mg/dl (9-20); Calcium 9.3 mg/dl (8.4-10.2); Carbon Dioxide 23 mmol/L (22-30); Chloride 110 mmol/L (98-107); Estimated Creatinine Clearance 35 ml/min; Glucose 107 mg/dl (70-99); Magnesium 2.5 mg/dl (1.6-2.3); Sodium 141 mmol/L (135-145); eGFR 46.06
[2024-02-14] MEDS: TYLENOL 1000 MG PO ×3 (05:59→22:24)
[2024-02-14 06:03] LABS: Glucose - Point of Care 93 mg/dl (70-99)
--- NOTE | 2024-02-14 07:00 | PTCARENOTE ---
Bedside walking rounds report received. Awake alert and oriented. Sinus rhythm. Attemping to wean levophed and dobutrex, then deline. Will maintain campuzano catheter per ct surgery due to low urine outputs and rising creat. See flowrecord for remaining
assessments.
--- NOTE | 2024-02-14 07:14 | W.PN.ANS.POP ---
Anesthesia Post Operative
- Anesthesia Post Op Note
Vital Signs Stable-See Nursing Note: Yes (maintained on Levo and Dubutamine gtts)
Airway Patent: Yes
Adequate Pain Control: Yes
Change in Mental Status: No
Current Postoperative Nausea & Vomiting: No
Anesthesia Complications: No
General Anesthetic Recall: No
Unplanned Admission: No
Post Op Hydration Adequate: Yes
[2024-02-14] MEDS: LOW STRENGTH ASPIRIN 81 MG PO (07:42)
[2024-02-14] MEDS: PACERONE 200 MG PO ×3 (07:42→22:24)
[2024-02-14] MEDS: NEURONTIN 100 MG PO ×3 (07:42→22:24)
[2024-02-14] MEDS: CRESTOR 20 MG PO (07:43)
[2024-02-14] MEDS: PLAVIX 75 MG PO (07:43)
[2024-02-14] MEDS: SENOKOT-S 1 TABLET PO ×2 (07:43→19:49)
[2024-02-14] MEDS: PROTONIX 40 MG PO (07:43)
[2024-02-14] MEDS: LIDOCAINE 4% PATCH 1 PATCH TOPICAL (07:44)
--- NOTE | 2024-02-14 07:50 | W.PN.CD ---
Today's Communication / Plan
-
Incentive spirometry.
Peripheral smear.
INR.
Recommend transfuse one unit PRBCs.
Check FENa.
Renal US (when appropriate).
Impression / Plan
-
Impression/Plan: 68-year-old male with hypertension, hyperlipidemia, gout, hx of alcohol abuse, and severe admitted for elective AVR + CABG.
#Severe
-Status post AVR with #27 Monae Inspiris Resilia.
-Anticipate routine post operative management.
-Pain control/chest tube management per CTS.
-Encourage incentive spirometry and ambulation when appropriate.
#CAD
-Chronic, stable.
-S/P 2V CABG (HOWARD to LAD, SVG to RPDA).
-ICMO seen at the beginning of surgery on KHADAR, improved after CABG/SAVR.
-High dose, high potency statin.
-Aspirin.
#MONICA
-New.
-Creatinine 1.6 <-- 0.9.
-UA negative.
-Check FENa, renal US (when appropriate).
#Anemia/thrombocytopenia
-New.
-Post operative loss.
-Transfuse one unit PRBC's and monitor platelets.
-If platelets drop below 50k, hold clopidogrel.
-Likely from pump run, but consider other etiologies (HIT, much less likely DIC/TTP).
-Check manual differential/smear, INR (r/o MAHA).
#HLD
-Chronic, stable.
-Rosuvastatin 20 mg daily.
#HTN
-Chronic, stable.
-Currently hypotensive.
Critical Care Time = 33 minutes.
Subjective/Interval History:
Extubated yesterday at 18:35.
Exited OR on dobutamine, insulin gtt.
Norepinephrine added for hypotension. Albumin 250 mL given x2 (14:29, 16:41). MAP now consistently > 60 mmHg. Norepinephrine weaned this morning.
Weight is down 1.6 kg from baseline (67.2 <-- 68.8).
Hbg 7.5 <-- 8.2.
Platelets 78 <-- 100.
Creatinine up to 1.6.
CI 2.24 L/min/m2.
SVR ~ 1200.
Requiring 4LNC.
DATA:
Intraprocedureal KHADAR, 02/13/2024:
CONCLUSIONS
Overall LVEF is approximately 35-40% with moderate global hypokinesis.
Moderate concentric left ventricular hypertrophy.
Trace mitral regurgitation.
Severe aortic stenosis.
Mild aortic insufficiency.
ALCIDES calculates to 0.8 cm2 by continuity equation.
Mild sessile atheroma seen in the descending aorta and distal arch.
Mid ascending aorta is mildly dilated measuring 3.6 cm at the level of the RPA.
POST OPERATIVE FINDINGS
The patient underwent an AVR with a size 27 bioprosthetic valve and a CABG.
Postop rhythm remains sinus. RV and LV function are now normal. LVEF is
markedly improved from the preop level. Overall LVEF is approximately 55% with
no new RWMA. The AVR is well seated with normal cusp motion. No AI or
perivalvular leaks noted. Max AV gradient now measures 7 mmHg, mean is 4 mmHg.
Trace MR. PV and TV function appear normal. Aortic scan is unchanged.
Spirometry, 01/24/2024:
Impression:
Mild obstructive lung disease.
No prior studies available for comparison.
TTE, 01/10/2024:
CONCLUSIONS
Low normal to mildly reduced left ventricular systolic function.
LV ejection fraction is 50-55%
Severe aortic stenosis. Mean gradient 35mmHg. Dimsionless index is 0.2.
Mildly dilated aortic root.
No prior study available for comparison.
Cardiac Catheterization, 01/10/2024:
CORONARY ANGIOGRAPHY
Dominance: Right
Left Main: Normal
LAD: Smooth 70-80% mid LAD stenosis immediately distal to the takeoff of the large second diagonal branch. The remainder of the LAD proper has mild luminal irregularities. The large D1 has 30% proximal stenosis.
Circumflex: Small distribution vessel giving rise to a small OM1, a medium sized OM 2 and a small OM 3. There is no significant disease in the circumflex system.
RCA: Large dominant vessel with an eccentric 70% mid RCA stenosis on a highly angulated segment. The large PDA and large posterolateral system have mild luminal irregularities.
CONCLUSIONS
1: Severe aortic stenosis (mean gradient 55 mmHg by echo) not invasively evaluated.
2: Double vessel CAD as described
3. Recommend surgical AVR/CABG x 2 (LAD, RCA)
4. The patient has been strongly advised to avoid all strenuous activity until cardiac surgery has been accomplished
Physical Exam
Vital Signs/Labs
Vital Signs
Temp Pulse Resp BP Pulse Ox
37.1 C 90 18 86/47 90
02/14/24 07:34 02/14/24 07:34 02/14/24 07:34 02/14/24 07:34 02/14/24 07:00
02/12/24 02/13/24 02/14/24
11:59 11:59 11:59
Actual Weight 67.2 kg
02/14/24 04:00
02/14/24 04:00
PT 15.4 Sec (11.4-14.6) H 02/14/24 04:00
INR 1.24 02/14/24 04:00
APTT 30.9 Sec (23.4-35.0) 02/13/24 13:52
Magnesium 2.5 mg/dl (1.6-2.3) H 02/14/24 04:00
Physical Exam
Constitutional: No acute distress and Comfortable
EENT: Anicteric and Moist mucous membranes
Cardiovascular: Rhythm & rate is regular, Pedal edema is absent, JVD pressure is normal, S1S2 is normal and Murmur/rub/gallop absent
Respiratory: Respiratory effort normal, Lungs clear to auscul., Wheeze Absent, Crackles Absent and Rhonchi Absent
GI: Soft, Distention absent, Flat, Non tender and Normal bowel sounds
Neuro/Psych: AO x 3
Data Reviewed
-
Date of Service: February 14, 2024
Medical Decision Making: Reviewed Test Results, Independent Historian Assessment, Test Interpretation and Review of Case with other Provider
EKG: Tracing Personally Visualized and interpreted and Report Reviewed by me
Echo: Report Reviewed by me
X-Ray/CT/US/MRI/NUC/PET: Image Personally Visualized and interpreted and Report Reviewed by me
Medical Tests (PFT, Pathology etc): Image Personally Visualized and interpreted and Report Reviewed by me
Labs: Labs Reviewed by me
[2024-02-14 07:51] LABS: Glucose - Point of Care 117 mg/dl (70-99)
--- NOTE | 2024-02-14 08:03 | W.PN.INTV ---
Today's Communication / Plan
Recommendations
Dobutamine being weaned
Incentive spirometry, pain control
Follow hemoglobin, platelets
Chest tube management per CT surgery
Once transferred to telemetry, we will sign off. Please call with questions
Assessment
-
68-year-old male with history of aortic stenosis/coronary disease status post bioprosthetic AVR/CAB x 12/15/2023 without complication. We are asked to help from critical care standpoint 02/12/22
S/p AVR/CAB x 2
Severe aortic stenosis
Normal EF, normal PA pressure
Postoperative anemia
Daily alcohol use
Right bundle branch block
Hypertension/hyperlipidemia
Family history of heart disease
MRSA colonized
Plan/recommendations
At this time, patient appears to be comfortable
Still remains on dobutamine, being weaned. Received 1 unit of transfusion.
Extubated without difficulty
Postoperative EKG with right bundle branch block
Chest x-ray 02/13 with left lower lobe atelectasis
Moving forward
Continue with management per CT surgery
Presently on dobutamine, being weaned
Chest tube output minimal
Follow hemoglobin, follow platelets
Received transfusion
follow blood sugars
Incentive spirometry, follow left lower lobe atelectasis
Preoperative spirometry is normal
Reviewed with critical care nursing
Once transferred to telemetry, we will sign off. Please call with questions
Subjective Dataa
Subjective Data
Date of Service:
Date of Service: February 14, 2024
Subjective:
Patient extubated without difficulty 02/12. Mild incisional pain. Otherwise denies nausea, shortness of breath. Conversant, appears to be in good spirits. Received 1 unit of transfusion
Objective Data
Data Reviewed
Vital Signs / I&O / Oxygen:
Vital Signs
Temp Pulse Resp BP Pulse Ox
98.5 F 86 18 90/50 90
02/14/24 07:53 02/14/24 07:53 02/14/24 07:53 02/14/24 07:53 02/14/24 07:00
Intake and Output
02/13/24 02/14/24 02/15/24
06:59 06:59 06:59
Intake Total 1177.3 / 1448.9 271.6 / 271.6
Output Total 1310 / 1340 30 / 30
Balance -132.7 / 108.9 241.6 / 241.6
SaO2 [SIMV] 94
SaO2 90
Nasal Cannula flow liters per 4
minute
Physical Exam
General: Comfortable and Other (IJ, A-line, chest tube)
HEENT: Normocephalic and Anicteric
Cardiovascular: S1-S2, Regular Rhythm, Murmur (n), Rub (n) and Other (Right lower extremity bandage)
Respiratory: Wheeze (n), Crackles (n), Rhonchi (n), Stridor (n) and Chest Tube
GI: Soft, Non Distended and Non Tender
Neurology: Awake, Alert and No Motor Deficits
Skin: Cyanosis (n), Jaundice (n) and Rash (n)
Labs/Micro/Reports
Lab Data
02/14/24 04:00
02/14/24 04:00
Laboratory Results
02/13/24 02/13/24 02/13/24
13:52 16:46 18:16
PT 20.2 H
INR 1.75
APTT 30.9
pH 7.45 7.29 L 7.38
pCO2 33 L 47 36
pO2 160 H 72 L 84
HCO3 22.9 22.6 21.3
O2 Delivery Level
02/14/24
04:00
PT 15.4 H
INR 1.24
APTT
pH
pCO2
pO2
HCO3
O2 Delivery Level
[2024-02-14] MEDS: DILAUDID 0.5 MG IV (09:28)
[2024-02-14] MEDS: BACTROBAN 2% OINTMENT 1 APPLIC NASAL ×2 (09:34→19:48)
[2024-02-14 10:06] LABS: % Basophils 0.1 % (0-2); % Immature Granulocytes 0.3 % (0-0.5); % Lymphocytes 6.6 % (20.5-51.1); Absolute Immature Granulocytes 0.1 10^3/uL (0-0.05); Absolute Monocytes 1.1 10^3/uL (0.1-0.6); Absolute Neutrophils 13.2 10^3/uL (1.4-6.5); Nucleated Red Blood Cells % 0 % (-)
[2024-02-14 10:07] LABS: Glucose - Point of Care 100 mg/dl (70-99)
[2024-02-14] MEDS: LASIX 40 MG IV (10:09)
--- NOTE | 2024-02-14 10:48 | CM ---
Chart reviewed. Patient is independent of ADLS, lives alone in a split level home, 6 [address]IR[address], 0 DME. Patient with a supportive girlfriend and friend who live close. Plan is for the patient to return home with CT Transitional RN. CM to follow
--- NOTE | 2024-02-14 12:00 | PTCARENOTE ---
No acute changes. OK to deline and get oob with assist of 2. No significant 'dumping from chest tubes.
[2024-02-14 12:32] LABS: Glucose - Point of Care 108 mg/dl (70-99)
[2024-02-14 14:35] LABS: Glucose - Point of Care 97 mg/dl (70-99)
--- NOTE | 2024-02-14 16:00 | PTCARENOTE ---
No acute changes. Dr. Sparks updated on rounds. Patient oob chair: increased oxygen nasal canula to 6L: additional 1 unit prbc's ordered and labs. Aware of persisted low urine outputs and minimal respponse from lasix IV
[2024-02-14] MEDS: NSS IV (16:52)
[2024-02-14] MEDS: BUMEX 50 IV (17:08)
[2024-02-14 17:12] LABS: Urine Albumin Trace (Neg - Trace); Urine Bilirubin Negative (Negative); Urine Character Slightly Cloudy (Clear); Urine Color Yellow; Urine Glucose Negative (Negative); Urine Ketone Trace (Negative); Urine Leukocyte Trace (Negative); Urine Nitrite Negative (Negative); Urine Occult Blood 4+ (Negative); Urine Urobilinogen Negative (Neg - 1+)
[2024-02-14 17:16] LABS: Blood Urea Nitrogen 30 mg/dl (9-20); Calcium 8.8 mg/dl (8.4-10.2); Carbon Dioxide 23 mmol/L (22-30); Chloride 103 mmol/L (98-107); Estimated Creatinine Clearance 23 ml/min; Glucose 122 mg/dl (70-99); Potassium 5.4 mmol/L (3.5-5.1); Sodium 134 mmol/L (135-145); eGFR 28.32
[2024-02-14 17:29] LABS: Urine Bacteria Many (Negative); Urine Hyaline Cast 0-2 /LPF (0-2)
[2024-02-14 17:30] LABS: Urine Red Blood Cell 80-90 /HPF (0-2)
[2024-02-14 17:53] LABS: Urine Sodium 37 mmol/L (30-90)
[2024-02-14 19:35] LABS: Mixed Venous O2 Saturation 49.6 %
--- NOTE | 2024-02-14 20:00 | PTCARENOTE ---
Received pt from [facility]; pt is resting comfortably in chair; pt is AAOx4; NSR on monitor, VSS; heart sounds audible, rub present, radial and DP pulse are palpable, no edema noted, temp epicardial V wires are insulated; lungs sounds diminished
throughout, spo2 90% on 6LNC, x2 mediastinal and right/left pleural CT to -20 wall suction, no air leaks, no tidaling, no crepitus; hypoactive BS x4 quadrants, abdomen soft non tender; pt voiding clear yellow urine via campuzano catheter; surgical sites
and dressings maintained; right IJ cordis and PIV maintained; SvO2 ordered, drawn, and sent; Bumex gtt d/c'd; 250ml albumin 5% x2 ordered, and dobutamine gtt ordered for cardiac output/BP per CVPA; CVP also ordered and setup via IJ cordis; pt
assisted back to bed; call castillo within reach; will continue to monitor.
[2024-02-14] MEDS: ALBUMIN 5% 250 IV ×2 (20:01→21:08)
[2024-02-14] MEDS: DOBUTREX 500 MG 250 IV (20:20)
[2024-02-14 22:53] LABS: Hematocrit 25.1 % (39.0-52.0); Hemoglobin 8.7 g/dL (13.0-18.0); Mean Corp Hgb Conc. 34.7 g/dL (33.0-37.0); Mean Corpuscular Hgb 31.1 pg (27.0-31.0); Mean Corpuscular Volume 89.6 fL (80.0-94.0); Mean Platelet Volume 10.3 fL (7.4-10.4); Platelet Count 56 10^3/uL (130-400); Red Cell Dist. Width 16.3 % (11.5-14.5); White Blood Cell Count 12.7 10^3/uL (4.8-10.8)
[2024-02-14 23:14] LABS: Blood Urea Nitrogen 36 mg/dl (9-20); Calcium 8.5 mg/dl (8.4-10.2); Carbon Dioxide 23 mmol/L (22-30); Chloride 103 mmol/L (98-107); Estimated Creatinine Clearance 24 ml/min; Glucose 139 mg/dl (70-99); Potassium 4.8 mmol/L (3.5-5.1); Sodium 136 mmol/L (135-145)
[2024-02-15] VITALS (39 sets, daily range): BP systolic 87–136; BP diastolic 57–82; PULSE 97; O2SAT 93–94; BMI 27.2
--- NOTE | 2024-02-15 | PTCARENOTE ---
Pt assessment unchanged; NSR on monitor, VSS; pt resting comfortably in bed; urine output has increased since administration of albumin and dobutamine gtt, see flow sheet; 2200 labs drawn and sent; pt spo2 dropped to below 90% on 6 LNC therefore
mid-flow NC @15 LPM was started and spo2 has improved, CVPA aware. Call castillo within reach; will continue monitor.
[2024-02-15] MEDS: ROXICODONE 5 MG PO ×3 (02:05→20:12)
[2024-02-15 03:37] LABS: Hematocrit 24.9 % (39.0-52.0); Hemoglobin 8.6 g/dL (13.0-18.0); Mean Corp Hgb Conc. 34.5 g/dL (33.0-37.0); Mean Corpuscular Hgb 30.7 pg (27.0-31.0); Mean Corpuscular Volume 88.9 fL (80.0-94.0); Platelet Count 50 10^3/uL (130-400); Red Cell Dist. Width 16.4 % (11.5-14.5); White Blood Cell Count 10.2 10^3/uL (4.8-10.8)
[2024-02-15 03:52] LABS: Blood Urea Nitrogen 38 mg/dl (9-20); Calcium 8.2 mg/dl (8.4-10.2); Carbon Dioxide 24 mmol/L (22-30); Chloride 106 mmol/L (98-107); Estimated Creatinine Clearance 24 ml/min; Glucose 131 mg/dl (70-99); Magnesium 2.3 mg/dl (1.6-2.3); Potassium 4.7 mmol/L (3.5-5.1); Sodium 135 mmol/L (135-145)
--- NOTE | 2024-02-15 04:00 | PTCARENOTE ---
Pt assessment unchanged; NSR on monitor, VSS; pt resting comfortably in bed; am labs drawn and sent; call castillo within reach; will continue to monitor.
--- NOTE | 2024-02-15 04:28 | W.PN.CT ---
Addendum entered and electronically signed by Paul Sparks MD 02/15/24 15:23:
I saw and examined the patient.
The PA's note was reviewed and I agree with the note.
Comment:
- Continue dobutamine today
- Follow UO/creat
- Follow PLT - hold ASA/plavix
- CT removal later today vs. tomorrow AM
Original Note:
Today's Communication / Plan
-
-No major issues overnight. Neurologically intact
-Placed back on Dobutamine due to low SvO2, decreased UO, and hypotension
SvO2, UO, and BP improved with Dobutamine
-Last mixed venous O2 59%
-Cont. current meds (ASA, Amiodarone, Lopressor - on hold; Plavix)
-transfused 2URBC's yesterday, H&H 8.6 and 24.9
-Platelets 50K this AM, will hold AM ASA and Plavix, not on heparin
-Monitor cr
-Monitor chest tube output: 2 meds 75/305, R/L pls 75/180
-wean Dobutamine
-Keep campuzano catheter given MONICA
-Maintain temporary pacer (will cut before d/c home)
-Encourage use of IS
-Wean off of O2
-OOB into chair
-Ambulate
Assessment / Plan
-
Assessment:
-S/P AVR (#27 Inspiris)/CABG x 2 (HOWARD-LAD, SVG - PDA)/R EVH, by Dr. Sparks, 02/13/24, pod#2
-Severe
-Severe 2v CAD
-LVEF 35-40% preop, improved to 55% postop per intraop KHADAR
-HTN
-Hyperlipidemia
-Gout
-Osteoarthritis
-Hx Diverticulitis S/P bowel resection
-S/p rotator cuff repair
-S/p appendectomy
-Acute postop blood loss/Anemia (stable without blood transfusion)
-Acute postop thrombocytopenia (worsening)
-Acute postop atelectasis
-Acute postop hypovolemia with subsequent hypervolemia
-Acute postop MONICA, 1.6
Subjective
Procedure
S/P AVR (#27 Inspiris)/CABG x 2 (HOWARD-LAD, SVG - PDA)/R EVH, by Dr. Sparks, 02/13/24, pod#2
-
Date of Service: February 15, 2024
Objective Data
-
Lab Results
02/15/24 03:12
PT 15.4 Sec (11.4-14.6) H 02/14/24 04:00
INR 1.24 02/14/24 04:00
APTT 30.9 Sec (23.4-35.0) 02/13/24 13:52
Vital Signs
Vital Signs
Temp Pulse Resp BP Pulse Ox
97.8 F 92 16 120/74 97
02/15/24 04:00 02/15/24 05:00 02/15/24 05:00 02/15/24 05:00 02/15/24 05:00
CT Intake/Output/Weight
02/14/24 02/14/24 02/15/24
06:59 18:59 06:59
Intake Total 602.2 / 1448.9 2273.5 / 3569.9 1296.4 / 3569.9
Output Total 545 / 1340 570 / 1695 1125 / 1695
Balance 57.2 / 108.9 1703.5 / 1874.9 171.4 / 1874.9
SaO2: 97
Physical Exam
-
General: AOx3
Cardiovascular: Regular rate & rhythm
Respiratory: Decreased Breath Sounds
Sternum: Stable
Incision: Dressing Intact
Extremities: Edema +1
[2024-02-15] MEDS: TYLENOL 1000 MG PO ×3 (05:30→22:55)
--- NOTE | 2024-02-15 06:00 | PTCARENOTE ---
Pt assessment unchanged; NSR on monitor, VSS; CHG bath provided, new gown, and new tele leads; see MAR for pain management; pt x2 assist OOB into chair; dobutamine still infusing; mid-flow NC still in use; Am labs showed platelet count as 50, am
Plavix and aspirin should be held per orders, this will be communicated to oncoming RN; call castillo within reach; will continue to monitor.
[2024-02-15] MEDS: SENOKOT-S 1 TABLET PO ×2 (07:49→19:57)
[2024-02-15] MEDS: BACTROBAN 2% OINTMENT 1 APPLIC NASAL ×2 (07:49→19:57)
[2024-02-15] MEDS: PROTONIX 40 MG PO (07:49)
[2024-02-15] MEDS: PACERONE 200 MG PO ×3 (07:49→22:55)
[2024-02-15] MEDS: NEURONTIN 100 MG PO ×3 (07:49→22:55)
[2024-02-15] MEDS: LIDOCAINE 4% PATCH 1 PATCH TOPICAL (07:49)
[2024-02-15] MEDS: CRESTOR 20 MG PO (07:49)
[2024-02-15 07:54] LABS: Glucose - Point of Care 151 mg/dl (70-99)
[2024-02-15] MEDS: BUMEX 1 MG IV (07:56)
--- NOTE | 2024-02-15 08:00 | PTCARENOTE ---
Received pt from shift production supervisor RN, pt AAOX3 and resting comfortably in chair; NSR on monitor and VSS; Epicardial V wires insulated; RIJ Cordis and PIV x1. Dobutamine infusing see flow sheet for details; Lungs diminished throughout; CT x4 to -20 wall
suction, no air leak and no crepitus noted; Hypoactive bowel sounds; Sheth Catheter draining clear yellow urine; palpable radial pulses and weak lower extremity pulses; no edema noted; surgical sites C/D/I; see nursing documentation for further
details.
--- NOTE | 2024-02-15 10:24 | PTCARENOTE ---
Mediastinal CT x2 removed per CV PA order; Right and Left Pleural Chest tubes now with +1 air leak, updated CV [employer]TER [employer]AT CAPTAIN.
--- NOTE | 2024-02-15 10:34 | W.PN.INTV ---
Today's Communication / Plan
Recommendations
Dobutamine per CT surgery
Follow platelets, urine output, creatinine
Incentive spirometry, pain control
Assessment
-
68-year-old male with history of aortic stenosis/coronary disease status post bioprosthetic AVR/CAB x 12/15/2023 without complication. We are asked to help from critical care standpoint 02/12/22
S/p AVR/CAB x 2
Severe aortic stenosis
Normal EF, normal PA pressure
Postoperative anemia
Daily alcohol use
Right bundle branch block
Hypertension/hyperlipidemia
Family history of heart disease
MRSA colonized
Plan/recommendations
At this time, patient appears to be comfortable
Still remains on dobutamine, being weaned. Mixed venous oxygenation 59%
Urine output noted
Chest x-ray with bilateral pleural effusions/atelectasis
Decreased breath sounds on exam
Creatinine 2.3
Platelets have decreased to 50
Moving forward
Continue with management per CT surgery
Presently on dobutamine, being weaned. Had to be resumed due to blood pressure, urine output and mixed venous
Chest tube output minimal
Follow hemoglobin, follow platelets, trending down
Minimal drainage per chest tube
Received transfusion
follow blood sugars
Incentive spirometry, follow left lower lobe atelectasis
Preoperative spirometry is normal
Reviewed with critical care nursing
Subjective Dataa
Subjective Data
Date of Service:
Date of Service: February 15, 2024
Subjective:
Patient continues to have some incisional discomfort otherwise without complaints. Denies nausea, abdominal pain, shortness of breath. Remains on dobutamine, critically ill. Mixed venous 59%
Objective Data
Data Reviewed
Vital Signs / I&O / Oxygen:
Vital Signs
Temp Pulse Resp BP Pulse Ox
99 F 86 20 103/73 94
02/15/24 07:00 02/15/24 10:15 02/15/24 10:00 02/15/24 10:00 02/15/24 10:15
Intake and Output
02/14/24 02/15/24 02/16/24
06:59 06:59 06:59
Intake Total 1177.3 / 1448.9 4058.3 / 4065.6 29.2 / 29.2
Output Total 1310 / 1340 1805 / 1840 180 / 180
Balance -132.7 / 108.9 2253.3 / 2225.6 -150.8 / -150.8
SaO2 [SIMV] 94
SaO2 94
Nasal Cannula flow liters per 7
minute
Physical Exam
General: Comfortable and Other (Chest tube)
HEENT: Normocephalic and Anicteric
Cardiovascular: S1-S2, Regular Rhythm, Murmur (n), Rub (n) and Other (Right lower extremity bandage)
Respiratory: Wheeze (n), Crackles (n), Rhonchi (n), Stridor (n), Chest Tube (No airleak) and Other (Decreased breath sounds)
GI: Soft, Non Distended and Non Tender
Neurology: Awake, Alert and No Motor Deficits
Skin: Cyanosis (n), Jaundice (n) and Rash (n)
Labs/Micro/Reports
Lab Data
02/15/24 03:12
--- NOTE | 2024-02-15 11:09 | CM ---
Chart reviewed. Patient is back on Dobutamine. Patient is independent of ADLS, lives alone in a split level home, 6 [address], 0 DME. Patient with a supportive girlfriend and family to help after discharge. Plan is for the patient to return home with
CT Transitional RN. CM to follow
--- NOTE | 2024-02-15 11:18 | PTCARENOTE ---
Assessment unchanged; NSR on monitor and VSS: US at bedside.
--- NOTE | 2024-02-15 14:12 | W.PN.CD ---
Today's Communication / Plan
-
Slowly improving
May need hematology consult if platelets do not improve
Impression / Plan
-
Background: 68-year-old male with severe , CAD, hypertension, hyperlipidemia, gout, and hx of alcohol use, admitted for elective AVR + CABG.
Severe Status post AVR with #27 Monae Inspiris Resilia.
CAD, S/P 2V CABG (HOWARD to LAD, SVG to RPDA)=> EF improved on postop intraop KHADAR
Decreased LVEF that improved on immediate postop KHADRA
- Will need to be followed and if EF low in followup then GDMT will be appropriate to add
MONICA, hope Cr is on its way down
Anemia/thrombocytopenia => see Dr. Robin's comments on 02/14/2024
Mixed hyperlipidemia => statin => goal LDL less than 55
Hx of HTN
Critical Care Time = 33 minutes.
Subjective/Interval History:
Feeling better. Pain controlled
DATA:
Intraop KHADAR, 02/13/2024: LVEF 35-40% with moderate global hypokinesis. Mod LVH, Severe aortic stenosis. POST OP:LVEF is approximately 55% with, AVR with no AI, mean 4 mmHg.
Spirometry, 01/24/2024: Mild obstructive lung disease.
TTE, 01/10/2024:LVEF 50-55%, severe
Cardiac Catheterization, 01/10/2024:
Left Main: Normal
LAD: Smooth 70-80% mid LAD stenosis immediately distal to the takeoff of the large second diagonal branch. The remainder of the LAD proper has mild luminal irregularities. The large D1 has 30% proximal stenosis.
Circumflex: Small distribution vessel giving rise to a small OM1, a medium sized OM 2 and a small OM 3. There is no significant disease in the circumflex system.
RCA: Large dominant vessel with an eccentric 70% mid RCA stenosis on a highly angulated segment. The large PDA and large posterolateral system have mild luminal irregularities.
Physical Exam
Vital Signs/Labs
Vital Signs
Temp Pulse Resp BP Pulse Ox
98.4 F 95 18 95/74 94
02/15/24 12:00 02/15/24 14:00 02/15/24 14:00 02/15/24 14:00 02/15/24 14:00
02/14/24 02/15/24 02/16/24
06:59 06:59 06:59
Actual Weight 69.7 kg
02/15/24 03:12
PT 15.4 Sec (11.4-14.6) H 02/14/24 04:00
INR 1.24 02/14/24 04:00
APTT 30.9 Sec (23.4-35.0) 02/13/24 13:52
Magnesium 2.3 mg/dl (1.6-2.3) 02/15/24 03:12
Physical Exam
Constitutional: No acute distress
EENT: Anicteric
Cardiovascular: Rhythm & rate is regular and Pedal edema is absent
Respiratory: Respiratory effort normal and Lungs clear to auscul. (decreased at bases)
GI: Soft, Distention absent and Non tender
Neuro/Psych: AO x 3
Data Reviewed
-
Date of Service: February 15, 2024
[2024-02-15] MEDS: NSS 500 IV (14:41)
--- NOTE | 2024-02-15 15:00 | PTCARENOTE ---
Assumed care of patient. Bedside report. NSR with PAC's pvc's. Disregard cvp readings in mckay vitals. Only spot checking is indicated.
--- NOTE | 2024-02-15 16:20 | W.CON.NEPH ---
Consultation
-
Date/Time Consultation Requested: 02/14/24 18:53
Date/Time Consultation Performed: 02/15/24 4:21PM
Requesting Provider: Asiya Ugarte
Performing Provider: Clarice Islas
Reason for Consultation: MONICA
Medical History
-
Chief Complaint: MONICA
History of Present Illness:
Mr. Adams is a 68-year-old male with severe , CAD, hypertension, hyperlipidemia, gout, and hx of alcohol use, admitted for elective AVR + CABG which he underwent without complication. Patient was initially intubated and on the vent, has now
been extubated.
The patient underwent surgery and we are now being consulted for MONICA. Prior to his procedure his Cr was 0.9 and now elevated to 1.6 and then 2.4, most recent 2.3.
Past Medical History
s/p AVR/CAB x2
Severe aortic stenosis
Daily alcohol usage
RBBB
HTN/DLD
diverticulosis
CAD
Past Medical History: Other
Past Surgical History: Appendectomy and Other
Social History
Tobacco: Non-Smoker
Alcohol: Daily (2-3 drinks/day)
Drug: None
Personal: Single
Living: Alone
Employment: Retired
Family History
Father with heart disease
Allergies / Home Medications
Allergy/AdvReac Type Severity Reaction Status Date / Time
No Known Allergies Allergy Unverified 01/20/24 09:03
�Medication �Instructions �Recorded �Confirmed �Type
Brain Health 1 dose PO DAILY Supplement 12/23/23 02/13/24 History
aspirin 81 mg chewable tablet 81 mg PO DAILY Blood Clot 12/23/23 02/13/24 History
Prevention/Tx
losartan 25 mg tablet 25 mg PO DAILY Blood Pressure 12/23/23 02/13/24 History
rosuvastatin 20 mg tablet 20 mg PO DAILY High Cholesterol 12/23/23 02/13/24 History
Review of Systems
-
History Source: Patient
All other systems: Negative unless noted
Constitutional: Fatigue
EENT: Other (dry mouth)
Respiratory: Trouble Breathing
Cardiac: Chest Pain
Abdomen/GI: Constipated
: Dark Urine
Neurological: Weakness
Physical Exam
Vital Signs
Vital Signs
Temp Pulse Resp BP Pulse Ox
98.4 F 95 18 95/74 94
02/15/24 12:00 02/15/24 14:00 02/15/24 14:00 02/15/24 14:00 02/15/24 14:00
Lab Results
WBC 10.2 10^3/uL (4.8-10.8) 02/15/24 03:12
RBC 2.80 10^6/uL (4.70-6.10) L 02/15/24 03:12
Hgb 8.6 g/dL (13.0-18.0) L 02/15/24 03:12
Hct 24.9 % (39.0-52.0) L 02/15/24 03:12
Plt Count 50 10^3/uL (130-400) L 02/15/24 03:12
eGFR 29.80 02/15/24 03:12
Albumin 4.3 g/dl (3.5-5.0) 01/24/24 12:07
Physical Exam
General: AOx3, No Distress and Nontoxic
HEENT: PERRL, EOMI, Anicteric, Conjunctivae Clear, Ear/Nose Intact and Hearing Normal
Respiratory: Crackels and Normal Excursion
Cardiac: S1/S2 and Regular Rate/Rhythm
Breast: N/A
Abdomen: Soft, Nontender and Other (distended)
Rectal: Deferred by Provider
Genito-urinary: Other (Sheth in place)
Musculoskeletal: No Clubbing, No Cyanosis and No Edema
Skin: No Rash, Warm, Dry and Normal Turgor
Neuro: Nonfocal/Grossly Intact
Hematologic/Lymphatic: No Cervical Lymphadenopathy
Psych: Mood/afflect pleasant, Insight/judgement good and Appropriate
Assessment/Plan
-
Assessment:
s/p AVR/CABG
Post op anemia s/p transfusions
MONICA (normal baseline Cr)
Hypotension (on pressors)
DLD
Gout
OA
Plan:
- most likely the patient has a post operative MONICA 2/2 to ATN from hemodynamic shifts intraoperatively
- patient's Cr appears to have peaked at 2.4, currently 2.3 (baseline 1).
- KUS unremarkable. UA with blood but likely in the setting of Sheth
- UOP decent at 1.7L, previously on a bumex gtt. now off but continuing to make urine
- At this time, he is likely in the oliguric phase of ATN but seems to be stable from a respiratory standpoint. Monitor closely for diuresis phase
- Agree with supportive measures per CT surgery
- MAP >65
- monitor I/Os
- continue to trend BMPs
Data Reviewed
-
Radiology: Report Reviewed by me (CXR with bilateral pleural effusions)
Ultrasound: Report Reviewed by me (unremarkable KUS)
Labs: Labs Reviewed by me, Discussed with Nurse and Discussed with Patient
Old Records: Reviewed
[2024-02-15 18:36] LABS: Blood Urea Nitrogen 42 mg/dl (9-20); Calcium 8.5 mg/dl (8.4-10.2); Carbon Dioxide 25 mmol/L (22-30); Chloride 98 mmol/L (98-107); Estimated Creatinine Clearance 25 ml/min; Glucose 185 mg/dl (70-99); Potassium 4.2 mmol/L (3.5-5.1); Sodium 132 mmol/L (135-145); eGFR 31.43
--- NOTE | 2024-02-15 21:50 | PTCARENOTE ---
Cordis appears kinked. Unable to draw or flush line. Attempted repositioning and redressing without improvement. CT PA notified. Orders to remove Cordis
[2024-02-15 23:35] LABS: Glucose - Point of Care 90 mg/dl (70-99)
[2024-02-16] VITALS (29 sets, daily range): BP systolic 98–134; BP diastolic 67–86; PULSE 86; O2SAT 86–95; BMI 27.2
--- NOTE | 2024-02-16 03:46 | W.PN.CT ---
Addendum entered and electronically signed by Paul Sparks MD 02/16/24 09:03:
I saw and examined the patient.
The PA's note was reviewed and I agree with the note.
Comment:
POD#3 s/p AVR, CABG x 2
No major overnight events. AVSS. Sinus. 97% 2L. GTTS: dobutamine 3.[address]: 2P: 100/260. UO: 560/1285, +campuzano. Tolerating PO. Neuro: intact. 7.8>9.1<60; 40/1.8
- MONICA resolving, D/C campuzano, continue diuresis
- Wean dobutamine to 2 today
- D/C pleural CTs
- OOB/IS/ambulate
- Wean to RA
- PLTs improving, continue to hold ASA/plavix today
Original Note:
Today's Communication / Plan
-
-pod #3
-no issues overnight
-drips: Dobut 3.5
-CT output: 2 pleur 100/260 in 12/24 hrs
-diuresed with 1 mg iv Bumex on 02/14 (UO 490/1215 in 12/24 hrs)- continue
-follow Cr- 1.8 today (peak 2.4 on 02/13 and 2.2 on 02/14, 0.9 preop)
-follow platelets- improving - 60K today (50K on 02/14)-holding ASA and Plavix
-Cordis dcd 02/14 (nonfunctional)
-holding BB while on Dobut and Mg d/t MONICA
-current meds (Crestor, Amio, Tylenol, Neurontin, Lidocaine patch)
-encourage IS (1000 so far), OOB as tolerated
Assessment / Plan
-
Assessment:
-S/P AVR (#27 Inspiris)/CABG x 2 (HOWARD-LAD, SVG - PDA)/R EVH, by Dr. Sparks, 02/13/24, pod#3
-Severe
-Severe 2v CAD
-LVEF 35-40% preop, improved to 55% postop per intraop KHADAR
-HTN
-Hyperlipidemia
-Gout
-Osteoarthritis
-Hx Diverticulitis S/P bowel resection
-S/p rotator cuff repair
-S/p appendectomy
-Acute postop blood loss/Anemia - s/p 2 pRBCs on 02/13 for hg 7.5
-Acute postop thrombocytopenia (worsening)- ASA and Plavix held
-Acute postop atelectasis
-Acute postop hypovolemia with subsequent hypervolemia
-Acute postop MONICA, 2.4 (0.9-1.1 preop)
-Acute postop pulmonary insufficiency
Discussed patient care with: Nursing and Care Team
Subjective
Procedure
S/P AVR (#27 Inspiris)/CABG x 2 (HOWARD-LAD, SVG - PDA)/R EVH, by Dr. Sparks, 02/13/24, pod#2
-
Date of Service: February 16, 2024
Objective Data
-
PT 15.4 Sec (11.4-14.6) H 02/14/24 04:00
INR 1.24 02/14/24 04:00
APTT 30.9 Sec (23.4-35.0) 02/13/24 13:52
Vital Signs
Vital Signs
Temp Pulse Resp BP Pulse Ox
98.4 F 81 18 102/73 94
02/15/24 23:00 02/16/24 02:45 02/16/24 02:00 02/16/24 02:00 02/16/24 02:45
CT Intake/Output/Weight
02/15/24 02/15/24 02/16/24
06:59 18:59 06:59
Intake Total 1784.8 / 4065.6 705.3 / 803.7 98.4 / 803.7
Output Total 1235 / 1840 905 / 1395 490 / 1395
Balance 549.8 / 2225.6 -199.7 / -591.3 -391.6 / -591.3
SaO2: 94
Physical Exam
-
General: Awake and AOx3
Cardiovascular: Regular rate & rhythm, No Murmurs and Rub
Respiratory: Decreased Breath Sounds
Sternum: Stable
Incision: Clean, Dry and Intact
Extremities: No Edema (warm b/l, difficult to feel DP and PT b/l)
Abdomen: soft, mildly distended, nontender, increased bowel sounds, no nausea, + flatus
Data Reviewed
-
Lab Results: Results Reviewed
Medications: Active Meds Reviewed
Chest X-Ray: Report Reviewed and Image Reviewed
ECG: Report Reviewed and Image Reviewed
[2024-02-16 04:16] LABS: Hematocrit 26.6 % (39.0-52.0); Hemoglobin 9.1 g/dL (13.0-18.0); Mean Corp Hgb Conc. 34.2 g/dL (33.0-37.0); Mean Corpuscular Hgb 30.7 pg (27.0-31.0); Mean Corpuscular Volume 89.9 fL (80.0-94.0); Platelet Count 60 10^3/uL (130-400); Red Blood Cell Count 2.96 10^6/uL (4.70-6.10); Red Cell Dist. Width 15.4 % (11.5-14.5); White Blood Cell Count 7.8 10^3/uL (4.8-10.8)
[2024-02-16 04:40] LABS: Blood Urea Nitrogen 40 mg/dl (9-20); Calcium 8.4 mg/dl (8.4-10.2); Carbon Dioxide 25 mmol/L (22-30); Chloride 101 mmol/L (98-107); Estimated Creatinine Clearance 31 ml/min; Glucose 128 mg/dl (70-99); Magnesium 2.2 mg/dl (1.6-2.3); Potassium 4.1 mmol/L (3.5-5.1); Sodium 134 mmol/L (135-145); eGFR 39.99
[2024-02-16] MEDS: DOBUTREX 500 MG 250 IV (05:03)
[2024-02-16] MEDS: TYLENOL 1000 MG PO ×3 (06:57→22:15)
--- NOTE | 2024-02-16 07:36 | PTCARENOTE ---
Patient stable overnight. AM hygiene care provided. AM labs obtained. Assisted patient OOB.
--- NOTE | 2024-02-16 07:44 | PTCARENOTE ---
Received pt from shift supervisor RN; Pt AAOx3 and resting comfortably in chair; NSR on monitor and VSS; PIV x2; Dobutamine infusing see flow sheet for details; lungs diminished; CT x2 to -20 wall suction no air leak and no crepitus noted; IS to 1000;
hypoactive bowel sounds; Sheth catheter draining clear yellow urine; palpable pulses throughout; no edema noted; surgical sites C/D/I; see nursing documentation for further details.
[2024-02-16] MEDS: NEURONTIN 100 MG PO ×3 (08:02→22:15)
[2024-02-16] MEDS: PROTONIX 40 MG PO (08:02)
[2024-02-16] MEDS: CRESTOR 20 MG PO (08:02)
[2024-02-16] MEDS: PACERONE 200 MG PO ×3 (08:02→22:15)
[2024-02-16] MEDS: SENOKOT-S 1 TABLET PO ×2 (08:03→19:47)
[2024-02-16] MEDS: BACTROBAN 2% OINTMENT 1 APPLIC NASAL ×2 (08:03→19:48)
[2024-02-16] MEDS: LIDOCAINE 4% PATCH 1 PATCH TOPICAL (08:03)
--- NOTE | 2024-02-16 08:28 | W.PN.INTV ---
Today's Communication / Plan
Recommendations
Continue to wean dobutamine per CT surgery
Incentive spirometry, pain control
Creatinine improving
Assessment
-
68-year-old male with history of aortic stenosis/coronary disease status post bioprosthetic AVR/CAB x 12/15/2023 without complication. We are asked to help from critical care standpoint 02/12/22
S/p AVR/CAB x 2
Severe aortic stenosis
Normal EF, normal PA pressure
Postoperative anemia
Daily alcohol use
Right bundle branch block
Hypertension/hyperlipidemia
Family history of heart disease
MRSA colonized
Plan/recommendations
At this time, patient appears to be comfortable
Still remains on dobutamine, being weaned.
Urine output noted, creatinine improving
Chest x-ray with bilateral pleural effusions/atelectasis, right greater than left
Decreased breath sounds on exam
Creatinine 2.3
Thrombocytopenia noted, antiplatelet therapy held per CT surgery
Moving forward
Continue with management per CT surgery
Presently on dobutamine, being weaned. Had to be resumed due to blood pressure, urine output
Chest tube output minimal
Follow hemoglobin, follow platelets, trending down but stabilized
Minimal drainage per chest tube
Received transfusion
follow blood sugars
Incentive spirometry, follow left lower lobe atelectasis
Preoperative spirometry is normal
Reviewed with critical care nursing
Subjective Dataa
Subjective Data
Date of Service:
Date of Service: February 16, 2024
Subjective:
Patient remains critically ill, remains on dobutamine. Patient fatigued, sitting in chair. Otherwise without complaints
Objective Data
Data Reviewed
Vital Signs / I&O / Oxygen:
Vital Signs
Temp Pulse Resp BP Pulse Ox
98.2 F 75 18 109/73 92
02/16/24 07:00 02/16/24 08:00 02/16/24 08:00 02/16/24 08:00 02/16/24 08:00
Intake and Output
02/15/24 02/16/24 02/17/24
06:59 06:59 06:59
Intake Total 4058.3 / 4065.6 825.6 / 825.6 7.3 / 7.3
Output Total 1805 / 1840 1650 / 1650 80 / 80
Balance 2253.3 / 2225.6 -824.4 / -824.4 -72.7 / -72.7
SaO2 [SIMV] 94
SaO2 92
Nasal Cannula flow liters per 3
minute
Physical Exam
General: Comfortable and Other (Chest tube)
HEENT: Normocephalic and Anicteric
Cardiovascular: S1-S2, Regular Rhythm, Murmur (n), Rub (n) and Other (Right lower extremity bandage)
Respiratory: Wheeze (n), Crackles (n), Rhonchi (n), Stridor (n), Chest Tube (No airleak) and Other (Decreased breath sounds at base)
GI: Soft, Non Distended and Non Tender
Neurology: Awake, Alert and No Motor Deficits
Skin: Cyanosis (n), Jaundice (n) and Rash (n)
Labs/Micro/Reports
Lab Data
02/16/24 03:57
02/16/24 03:57
--- NOTE | 2024-02-16 10:22 | W.PN.CD ---
Today's Communication / Plan
-
wean dobutamine
trend Cr, CBC
assess to resume ASA/Plavix as plts continue to improve
Impression / Plan
-
Impression/Plan: 68-year-old male with hypertension, hyperlipidemia, gout, hx of alcohol abuse, and severe admitted for elective AVR + CABG.
#Severe
-Status post AVR with #27 Monae Inspiris Resilia.
-Pain control/chest tube management per CTS.
-weaning dobutamine
#CAD/CABG
-S/P 2V CABG (HOWARD to LAD, SVG to RPDA).
-rhythm is sinus
-ICMO seen at the beginning of surgery on KHADAR, improved after CABG/SAVR.
-High dose, high potency statin.
-ASA/Plavix held due to low plts, which are improving
#MONICA
-Nephrology consulted
-pre op Cr 0.9
-peak Cr 2.4, down to 1.8 today
#Anemia/thrombocytopenia
-improving
#HLD
-Chronic, stable.
-Rosuvastatin 20 mg daily.
#HTN
-BP low post op: meds held
CCT 31 minutes.
Subjective/Interval History:
Feels a little better each day.
DATA:
Intraop KHADAR, 02/13/2024: LVEF 35-40% with moderate global hypokinesis. Mod LVH, Severe aortic stenosis. POST OP:LVEF is approximately 55% with, AVR with no AI, mean 4 mmHg.
Spirometry, 01/24/2024: Mild obstructive lung disease.
TTE, 01/10/2024:LVEF 50-55%, severe
Cardiac Catheterization, 01/10/2024:
Left Main: Normal
LAD: Smooth 70-80% mid LAD stenosis immediately distal to the takeoff of the large second diagonal branch. The remainder of the LAD proper has mild luminal irregularities. The large D1 has 30% proximal stenosis.
Circumflex: Small distribution vessel giving rise to a small OM1, a medium sized OM 2 and a small OM 3. There is no significant disease in the circumflex system.
RCA: Large dominant vessel with an eccentric 70% mid RCA stenosis on a highly angulated segment. The large PDA and large posterolateral system have mild luminal irregularities.
Physical Exam
Vital Signs/Labs
Vital Signs
Temp Pulse Resp BP Pulse Ox
98.2 F 79 18 98/73 94
02/16/24 07:00 02/16/24 10:15 02/16/24 08:00 02/16/24 10:00 02/16/24 10:15
02/15/24 02/16/24 02/17/24
06:59 06:59 06:59
Actual Weight 69.7 kg 69.6 kg
02/16/24 03:57
02/16/24 03:57
PT 15.4 Sec (11.4-14.6) H 02/14/24 04:00
INR 1.24 02/14/24 04:00
APTT 30.9 Sec (23.4-35.0) 02/13/24 13:52
Magnesium 2.2 mg/dl (1.6-2.3) 02/16/24 03:57
Physical Exam
Constitutional: Comfortable
EENT: Moist mucous membranes
Cardiovascular: Rhythm & rate is regular, Pedal edema is absent, JVD pressure is normal and Systolic murmur absent
Respiratory: Respiratory effort normal and Lungs clear to auscul.
GI: Soft, Distention absent and Flat
Neuro/Psych: AO x 3
Data Reviewed
-
Date of Service: February 16, 2024
EKG: Tracing Personally Visualized and interpreted (Tele: NSR 80s)
Labs: Labs Reviewed by me
Critical Care Time (in minutes): 31
--- NOTE | 2024-02-16 10:54 | CM ---
Chart reviewed. Patient was OOB sitting in the chair on a Dobutamine drip. Patient is independent of ADLS, lives alone in a split level home, 6 [address]IR[address], 0 DME. Patient with supportive girlfriend and friend who live close, who will help patient when
he is medically stable for discharge. Plan is for the patient to return home with CT Transitional RN. CM to follow
--- NOTE | 2024-02-16 11:13 | W.PN.NEPH.PH ---
Today's Communication / Plan
-
bumex prn per primary
Assessment/Plan
-
Assessment:
s/p AVR/CABG
Post op anemia s/p transfusions
MONICA (normal baseline Cr)
Hypotension (on pressors)
DLD
Gout
OA
Plan:
- most likely the patient has a post operative MONICA 2/2 to ATN from hemodynamic shifts intraoperatively
- patient's Cr seem to improve to 1.8 (baseline 1).
- KUS unremarkable. UA with blood but likely in the setting of Campuzano
- non oliguric with campuzano, ok for bumex if needed
if cr improves ok for VT tomorrow
BP stable, Dobutamine per primary
monitor I/Os
- continue to trend BMPs
d/w nursing and primary
-
-
Date of Service: February 16, 2024
CC / HPI / ROS
-
Chief Complaint:
MONICA
History of Present Illness:
cr improving to 1.8
wt no change
BP soft, bilat chest tubes +
non oliguric with campuzano
Review of Systems:
no sob at rest
no pain currenlty
no fever
Labs
-
Labs:
WBC 7.8 10^3/uL (4.8-10.8) 02/16/24 03:57
RBC 2.96 10^6/uL (4.70-6.10) L 02/16/24 03:57
Hgb 9.1 g/dL (13.0-18.0) L 02/16/24 03:57
Hct 26.6 % (39.0-52.0) L 02/16/24 03:57
Plt Count 60 10^3/uL (130-400) L 02/16/24 03:57
Sodium 134 mmol/L (135-145) L 02/16/24 03:57
Potassium 4.1 mmol/L (3.5-5.1) 02/16/24 03:57
Chloride 101 mmol/L (98-107) 02/16/24 03:57
Carbon Dioxide 25 mmol/L (22-30) 02/16/24 03:57
BUN 40 mg/dl (9-20) H 02/16/24 03:57
Creatinine 1.8 mg/dL (0.7-1.3) H 02/16/24 03:57
eGFR 39.99 02/16/24 03:57
Glucose 128 mg/dl (70-99) H 02/16/24 03:57
Calcium 8.4 mg/dl (8.4-10.2) 02/16/24 03:57
Albumin 4.3 g/dl (3.5-5.0) 01/24/24 12:07
Physical Exam
-
Vital Signs:
Vital Signs
Temp Pulse Resp BP Pulse Ox
98.2 F 77 16 104/71 93
02/16/24 10:00 02/16/24 11:00 02/16/24 11:00 02/16/24 11:00 02/16/24 11:01
Cardiovascular:: Regular rate and rhythm
Respiratory:: Bilateral: Coarse
Lung Excursion:: Normal
Abdomen:: Nontender and Soft
Extremity Edema:: None: Bilateral:
Campuzano Catheter: Yes
--- NOTE | 2024-02-16 12:34 | PTCARENOTE ---
Right and Left Pleural Chest tube removed per CV NURSE EMERGENCY order.
--- NOTE | 2024-02-16 12:56 | PTCARENOTE ---
Assessment unchanged; NSR on monitor and VSS; pt resting comfortably in bed.
[2024-02-16] MEDS: NSS IV (13:53)
--- NOTE | 2024-02-16 20:30 | PTCARENOTE ---
Assumed care of patient at 1900. Patient found OOB in chair at time of assessment. Patient is AOx4, follows commands appropriately, moves all extremities. Lung sounds are diminished throughout, patient is on 3L via NC with saO2 at 92%. Heart sounds
have a regular rate and rhythm, there is an intermittent rub on auscultation, patient is in NSR on the monitor. Patient has weak but palpable dorsalis pedis pulses, normal radial pulses, and no edema is noted. Patient has active BS no post op BM
reported yet. There is a campuzano in place draining clear yellow urine. Patient has a sternal incision with aquacell dressing that is CDI, RLE incision approximated with surg adhesive PASCUAL and ecchymotic, a R groin puncture approx with surg adhesive PASCUAL
and ecchymotic. Patient has Dobut@ 2 running through R Hand PIV. There is a R AC PIV available for intermittent infusion. Assisted patient back to bed. VSS.
[2024-02-17] VITALS (19 sets, daily range): BP systolic 98–136; BP diastolic 64–103; PULSE 90; O2SAT 92–95; BMI 27.1
--- NOTE | 2024-02-17 00:30 | PTCARENOTE ---
Patient reassessed. VSS. Remains in SR with BBB on the monitor. Patient is stable.
--- NOTE | 2024-02-17 03:53 | PTCARENOTE ---
Patient reassessed. VSS. AM labs obtained. AM hygiene care provided.
[2024-02-17 04:03] LABS: Hematocrit 25.7 % (39.0-52.0); Mean Corpuscular Hgb 30.8 pg (27.0-31.0); Mean Platelet Volume 10.4 fL (7.4-10.4); Platelet Count 78 10^3/uL (130-400); Red Blood Cell Count 2.92 10^6/uL (4.70-6.10); Red Cell Dist. Width 14.8 % (11.5-14.5); White Blood Cell Count 8.3 10^3/uL (4.8-10.8)
[2024-02-17 04:12] LABS: Blood Urea Nitrogen 27 mg/dl (9-20); Calcium 8.4 mg/dl (8.4-10.2); Carbon Dioxide 25 mmol/L (22-30); Chloride 106 mmol/L (98-107); Estimated Creatinine Clearance 50 ml/min; Glucose 103 mg/dl (70-99); Magnesium 2.2 mg/dl (1.6-2.3); Potassium 4.2 mmol/L (3.5-5.1); Sodium 134 mmol/L (135-145); eGFR > 60.00
--- NOTE | 2024-02-17 06:08 | W.PN.CT ---
Addendum entered and electronically signed by Paul Sparks MD 02/17/24 14:16:
I saw and examined the patient.
The PA's note was reviewed and I agree with the note.
Comment:
Doing well. MONICA continues resolve.
OK to resume ASA/plavix
Wean dobutamine to OFF
OOB/IS/ambulate
D/C planning for 1-2 days
Original Note:
Today's Communication / Plan
-
-pod #4
-no issues overnight
-drips: Dobut 2-wean as tolerated
-follow Cr- 1.1 today (peak 2.4 on 02/13 and 2.2 on 02/14, 0.9 preop)
-follow [id number] today (50K on 02/14)-holding ASA and Plavix (restart once platelets improve)
-holding BB while on Dobut and Mg d/t MONICA
-wean off O2 as tolerated - pOx 95% on 3L
-follow 2v-CXR
-current meds (Crestor, Amio, Tylenol, Neurontin, Lidocaine patch)
-encourage IS (1000 so far), OOB as tolerated
Assessment / Plan
-
Assessment:
-S/P AVR (#27 Inspiris)/CABG x 2 (HOWARD-LAD, SVG - PDA)/R EVH, by Dr. Sparks, 02/13/24, pod#4
-Severe
-Severe 2v CAD
-LVEF 35-40% preop, improved to 55% postop per intraop KHADAR
-HTN
-Hyperlipidemia
-Gout
-Osteoarthritis
-Hx Diverticulitis S/P bowel resection
-S/p rotator cuff repair
-S/p appendectomy
-Acute postop blood loss/Anemia - s/p 2 pRBCs on 02/13 for hg 7.5
-Acute postop thrombocytopenia - ASA and Plavix held
-Acute postop atelectasis
-Acute postop hypovolemia with subsequent hypervolemia
-Acute postop MONICA, 2.4 (0.9-1.1 preop)
-Acute postop pulmonary insufficiency
Discussed patient care with: Nursing and Care Team
Subjective
Procedure
S/P AVR (#27 Inspiris)/CABG x 2 (HOWARD-LAD, SVG - PDA)/R EVH, by Dr. Sparks, 02/13/24, pod#2
-
Date of Service: February 17, 2024
Objective Data
-
PT 15.4 Sec (11.4-14.6) H 02/14/24 04:00
INR 1.24 02/14/24 04:00
APTT 30.9 Sec (23.4-35.0) 02/13/24 13:52
Vital Signs
Vital Signs
Temp Pulse Resp BP Pulse Ox
97.8 F 83 18 110/79 95
02/16/24 23:00 02/16/24 23:00 02/16/24 23:00 02/16/24 23:00 02/16/24 23:00
CT Intake/Output/Weight
02/16/24 02/16/24 02/17/24
06:59 18:59 06:59
Intake Total 120.3 / 825.6 517.8 / 522.0 4.2 / 522.0
Output Total 745 / 1650 580 / 875 295 / 875
Balance -624.7 / -824.4 -62.2 / -353.0 -290.8 / -353.0
SaO2: 95
Physical Exam
-
General: Awake and AOx3
Cardiovascular: Regular rate & rhythm, No Murmurs and Rub
Respiratory: Decreased Breath Sounds
Sternum: Stable
Incision: Clean, Dry and Intact
Abdomen: soft, mildly distended, nontender, increased bowel sounds, no nausea, + flatus
Extremities: No Edema (warm b/l, difficult to feel DP and PT b/l)
Data Reviewed
-
Lab Results: Results Reviewed
Medications: Active Meds Reviewed
Chest X-Ray: Report Reviewed and Image Reviewed
ECG: Report Reviewed and Image Reviewed
--- NOTE | 2024-02-17 07:17 | W.PN.CD ---
Today's Communication / Plan
-
Incentive spirometry.
Ambulate (!).
Ok to restart antiplatelet therapy.
Wean dobutamine and O2.
Impression / Plan
-
Impression/Plan: 68-year-old male with hypertension, hyperlipidemia, gout, hx of alcohol abuse, and severe admitted for elective AVR + CABG.
#Severe
-Status post AVR with #27 Monae Inspiris Resilia.
-Encourage incentive spirometry and ambulation when appropriate.
-Wean dobutamine as tolerated.
-Wean oxygen as tolerated. CXR shows poor inspiratory effort (difficult to comment on vascular congestion vs. crowding). I suspect poor lung recruitment is leading to his persistent hypoxia.
#CAD
-Chronic, stable.
-S/P 2V CABG (HOWARD to LAD, SVG to RPDA).
-ICMO seen at the beginning of surgery on KHADAR, improved after CABG/SAVR.
-High dose, high potency statin.
-Aspirin/clopidogrel on hold for thrombocytopenia. Plt up to 78. Ok to resume DAPT (or SAPT with clopidogrel only) from a cardiac perspective.
#MONICA
-Improving.
-Creatinine 1.1.
-UA/VY negative.
-Diuresis as indicated.
#Anemia/thrombocytopenia
-Stabilized/improving.
-Post operative loss.
-No evidence of MAHA (Schistocytes/helmet cells).
#HLD
-Chronic, stable.
-Rosuvastatin 20 mg daily.
#HTN
-Chronic, stable.
-Currently hypotensive.
Critical Care Time = 31 minutes.
Subjective/Interval History:
BUN/Cr improving.
Weight is approaching baseline.
Remains on 3LNC.
Dobutamine down to 2 mcg/kg/min.
DATA:
Intraprocedureal KHADAR, 02/13/2024:
CONCLUSIONS
Overall LVEF is approximately 35-40% with moderate global hypokinesis.
Moderate concentric left ventricular hypertrophy.
Trace mitral regurgitation.
Severe aortic stenosis.
Mild aortic insufficiency.
ALCIDES calculates to 0.8 cm2 by continuity equation.
Mild sessile atheroma seen in the descending aorta and distal arch.
Mid ascending aorta is mildly dilated measuring 3.6 cm at the level of the RPA.
POST OPERATIVE FINDINGS
The patient underwent an AVR with a size 27 bioprosthetic valve and a CABG.
Postop rhythm remains sinus. RV and LV function are now normal. LVEF is
markedly improved from the preop level. Overall LVEF is approximately 55% with
no new RWMA. The AVR is well seated with normal cusp motion. No AI or
perivalvular leaks noted. Max AV gradient now measures 7 mmHg, mean is 4 mmHg.
Trace MR. PV and TV function appear normal. Aortic scan is unchanged.
Spirometry, 01/24/2024:
Impression:
Mild obstructive lung disease.
No prior studies available for comparison.
TTE, 01/10/2024:
CONCLUSIONS
Low normal to mildly reduced left ventricular systolic function.
LV ejection fraction is 50-55%
Severe aortic stenosis. Mean gradient 35mmHg. Dimsionless index is 0.2.
Mildly dilated aortic root.
No prior study available for comparison.
Cardiac Catheterization, 01/10/2024:
CORONARY ANGIOGRAPHY
Dominance: Right
Left Main: Normal
LAD: Smooth 70-80% mid LAD stenosis immediately distal to the takeoff of the large second diagonal branch. The remainder of the LAD proper has mild luminal irregularities. The large D1 has 30% proximal stenosis.
Circumflex: Small distribution vessel giving rise to a small OM1, a medium sized OM 2 and a small OM 3. There is no significant disease in the circumflex system.
RCA: Large dominant vessel with an eccentric 70% mid RCA stenosis on a highly angulated segment. The large PDA and large posterolateral system have mild luminal irregularities.
CONCLUSIONS
1: Severe aortic stenosis (mean gradient 55 mmHg by echo) not invasively evaluated.
2: Double vessel CAD as described
3. Recommend surgical AVR/CABG x 2 (LAD, RCA)
4. The patient has been strongly advised to avoid all strenuous activity until cardiac surgery has been accomplished
Physical Exam
Vital Signs/Labs
Vital Signs
Temp Pulse Resp BP Pulse Ox
36.6 C 83 18 107/74 94
02/16/24 23:00 02/17/24 03:30 02/17/24 03:00 02/17/24 03:00 02/17/24 03:30
02/15/24 02/16/24 02/17/24
11:59 11:59 11:59
Actual Weight 69.7 kg 69.6 kg 69.4 kg
02/17/24 03:32
02/17/24 03:32
PT 15.4 Sec (11.4-14.6) H 02/14/24 04:00
INR 1.24 02/14/24 04:00
APTT 30.9 Sec (23.4-35.0) 02/13/24 13:52
Magnesium 2.2 mg/dl (1.6-2.3) 02/17/24 03:32
Physical Exam
Constitutional: No acute distress and Comfortable
EENT: Anicteric and Moist mucous membranes
Cardiovascular: Rhythm & rate is regular, Pedal edema is absent, JVD pressure is normal, S1S2 is normal and Murmur/rub/gallop absent
Respiratory: Respiratory effort normal and Other (Tubular breath sounds in the RLL.)
GI: Soft, Distention absent, Flat, Non tender and Normal bowel sounds
Neuro/Psych: AO x 3
Data Reviewed
-
Date of Service: February 17, 2024
Medical Decision Making: Reviewed Test Results, Independent Historian Assessment and Test Interpretation
EKG: Tracing Personally Visualized and interpreted and Report Reviewed by me
Echo: Tracing Personally Visualized and interpreted and Report Reviewed by me
X-Ray/CT/US/MRI/NUC/PET: Image Personally Visualized and interpreted and Report Reviewed by me
Medical Tests (PFT, Pathology etc): Image Personally Visualized and interpreted and Report Reviewed by me
Labs: Labs Reviewed by me
[2024-02-17] MEDS: TYLENOL 1000 MG PO ×3 (07:30→21:41)
--- NOTE | 2024-02-17 07:30 | PTCARENOTE ---
Assumed care of patient from third shift lieutenant RN. AAO x 3 sitting up in the chair. SR on monitor. epicardial wires insulated. Lungs decreased bilaterally , poor effort. IS encouraged, 3 L NC 92%. Abdomen soft and non tender. Passing flatus.
Appetite fair. Sheth draining clear yellow urine. No edema appreciated. Pulses palpable. Plan for day discussed.
[2024-02-17] MEDS: BACTROBAN 2% OINTMENT 1 APPLIC NASAL (08:24)
[2024-02-17] MEDS: NEURONTIN 100 MG PO ×3 (08:25→21:41)
[2024-02-17] MEDS: PROTONIX 40 MG PO (08:25)
[2024-02-17] MEDS: CRESTOR 20 MG PO (08:25)
[2024-02-17] MEDS: LIDOCAINE 4% PATCH 1 PATCH TOPICAL (08:25)
[2024-02-17] MEDS: SENOKOT-S 1 TABLET PO (08:25)
[2024-02-17] MEDS: PACERONE 200 MG PO ×2 (08:25→16:45)
[2024-02-17] MEDS: LASIX 40 MG IV (10:35)
--- NOTE | 2024-02-17 12:00 | PTCARENOTE ---
Ambulating in room with minimal assistance, diuresing well, Able to produce a very large formed bowel movement. Assessment unchanged otherwise from prior.
--- NOTE | 2024-02-17 14:06 | PN.CDI ---
CDI
- -
CDI:
Physician Documentation Request
Admit Date: 02/13/24 04:58
Dear /CT Surgery industrial editor,
Clinical Indicators:
Patient admitted with severe and 2v CAD; s/p AVR/CABG x2 02/12.
02/17 CT surgery PN, 'Acute postop hypovolemia with subsequent hypervolemia'
Sodium levels:
02/14/24 02/15/24 02/16/24
16:42 17:58 03:57
Sodium 134 L 132 L 134 L
02/17/24
03:32
Sodium 134 L
Based on the above, could you clarify in the progress notes, the appropriate diagnosis, if significant, that supports the above abnormalities and additional evaluation, monitoring and/or treatment rendered:
Hyponatremia
Abnormal lab values, clinically insignificant
Other,please specify
Use of terms such as suspected, likely, concern for, or probable (associated with a specific diagnosis that is being evaluated, monitored, or treated as if it exists) are acceptable and can be coded in the inpatient setting, when documented at the
time of discharge.
Thank you,
RICKI Warren RN
CDI Specialist
available via tiger text
Please use your independent medical judgment in providing your response.
[2024-02-17] MEDS: NSS IV (14:21)
[2024-02-17] MEDS: LOW STRENGTH ASPIRIN 81 MG PO (14:21)
[2024-02-17] MEDS: PLAVIX 75 MG PO (14:21)
--- NOTE | 2024-02-17 14:45 | CM ---
Chart reviewed. Patient is independent of ADLS, lives alone in a split level home, 0 DME. Patient said he has supportive girlfriend and friends who live close to help assist after discharge. Plan is for the patient to return home with CT
Transitional RN. CM to follow
--- NOTE | 2024-02-17 14:53 | W.PN.NEPH.PH ---
Today's Communication / Plan
-
sign off
Assessment/Plan
-
Assessment:
s/p AVR/CABG
Post op anemia s/p transfusions
MONICA (normal baseline Cr)
Hypotension (on pressors)
DLD
Gout
OA
Plan:
- most likely the patient has a post operative MONICA 2/2 to ATN from hemodynamic shifts intraoperatively
- patient's Cr now back to baseline at 1.1
- KUS unremarkable. UA with blood but likely in the setting of Campuzano
- non oliguric with campuzano, ok for bumex if needed
- BP stable
- monitor I/Os
- continue to trend BMPs
- d/w patient
Nephrology will sign off at this time
-
-
Date of Service: February 17, 2024
CC / HPI / ROS
-
Chief Complaint:
MONICA
History of Present Illness:
cr improving to 1.1
wt no change
BP soft, bilat chest tubes +
non oliguric with campuzano
Review of Systems:
no sob at rest
no pain currenlty
no fever
Labs
-
Labs:
WBC 8.3 10^3/uL (4.8-10.8) 02/17/24 03:32
RBC 2.92 10^6/uL (4.70-6.10) L 02/17/24 03:32
Hgb 9.0 g/dL (13.0-18.0) L 02/17/24 03:32
Hct 25.7 % (39.0-52.0) L 02/17/24 03:32
Plt Count 78 10^3/uL (130-400) L D 02/17/24 03:32
Sodium 134 mmol/L (135-145) L 02/17/24 03:32
Potassium 4.2 mmol/L (3.5-5.1) 02/17/24 03:32
Chloride 106 mmol/L (98-107) 02/17/24 03:32
Carbon Dioxide 25 mmol/L (22-30) 02/17/24 03:32
BUN 27 mg/dl (9-20) H 02/17/24 03:32
Creatinine 1.1 mg/dL (0.7-1.3) 02/17/24 03:32
eGFR > 60.00 02/17/24 03:32
Glucose 103 mg/dl (70-99) H 02/17/24 03:32
Calcium 8.4 mg/dl (8.4-10.2) 02/17/24 03:32
Albumin 4.3 g/dl (3.5-5.0) 01/24/24 12:07
Physical Exam
-
Vital Signs:
Vital Signs
Temp Pulse Resp BP Pulse Ox
98.0 F 94 16 110/77 90
02/17/24 12:28 02/17/24 12:28 02/17/24 12:28 02/17/24 08:00 02/17/24 12:28
Cardiovascular:: Regular rate and rhythm
Respiratory:: Bilateral: CTA
Lung Excursion:: Normal
Abdomen:: Nontender and Soft
Bowel Sounds:: Normal
Extremity Edema:: +1: Bilateral:
Campuzano Catheter: Yes
--- NOTE | 2024-02-17 16:36 | PTCARENOTE ---
Ambulated in hallway with RN. Denies pain. Napping intermittently. VSS Assessment otherwise unchanged from prior.
--- NOTE | 2024-02-17 17:35 | PTCARENOTE ---
Aggressive Chest PT preformed . Pt ambulated again. Produced another large bowl movement,.
[2024-02-17] MEDS: SENOKOT-S PO (17:37)
--- NOTE | 2024-02-17 20:27 | PTCARENOTE ---
Received patient for 7p-7a shift. Pt AAOx3, without complaints. VSS, NSR with 1st degree hb on monitoring coordinator. 93% 2L via nc. Epicardial wire insulated, dsg c/d/i. IS up to 1750, occasional non-prod cough. MSI Aquacell dressing c/d/i; R groin,
innner knee incisions assistant track coach, ecchymotic. Medications administered as ordered. Pt denies pain at this time. Pt verbalized understanding to call for assistance prior to ambulation, call castillo in reach. Will continue to monitor.
[2024-02-17] MEDS: PACERONE 400 MG PO (21:41)
[2024-02-18] VITALS (11 sets, daily range): BP systolic 105–129; BP diastolic 70–117; PULSE 84; O2SAT 90–91; BMI 26.3
--- NOTE | 2024-02-18 00:32 | PTCARENOTE ---
Patient resting comfortably. VSS, NSR with bbb on cougar hunter. Medications administered as ordered. Pt denies pain at this time. Will continue to monitor.
[2024-02-18 04:00] LABS: Hematocrit 28.1 % (39.0-52.0); Hemoglobin 9.7 g/dL (13.0-18.0); Mean Corp Hgb Conc. 34.5 g/dL (33.0-37.0); Mean Corpuscular Hgb 30.6 pg (27.0-31.0); Mean Corpuscular Volume 88.6 fL (80.0-94.0); Mean Platelet Volume 10.2 fL (7.4-10.4); Platelet Count 120 10^3/uL (130-400); Red Blood Cell Count 3.17 10^6/uL (4.70-6.10); Red Cell Dist. Width 14.5 % (11.5-14.5); White Blood Cell Count 8.1 10^3/uL (4.8-10.8)
[2024-02-18 04:29] LABS: Blood Urea Nitrogen 26 mg/dl (9-20); Calcium 8.6 mg/dl (8.4-10.2); Carbon Dioxide 27 mmol/L (22-30); Chloride 100 mmol/L (98-107); Estimated Creatinine Clearance 50 ml/min; Glucose 110 mg/dl (70-99); Potassium 3.8 mmol/L (3.5-5.1); Sodium 134 mmol/L (135-145); eGFR > 60.00
--- NOTE | 2024-02-18 04:29 | W.PN.CT ---
Today's Communication / Plan
-
-No major issues overnight. Hemodynamically and neurologically intact
-Dobutamine weaned off yesterday 01/16
-Resume Lopressor, cont. Amiodarone
-Cont. diuresis, wt up 2k yesterday, hyponatremic @ 134. Fluid restriction
-D/C'd campuzano this AM @ 0600. Monitor u/o
-D/C cordis
-Maintain temporary PW
-Encourage use of IS
-Wean off of O2, currently on 2L of NC with O2sats 93-94%
-OOB into chair/Ambulate
-Home in 1-2 days
Assessment / Plan
-
Assessment:
-S/P AVR (#27 Inspiris)/CABG x 2 (HOWARD-LAD, SVG - PDA)/R EVH, by Dr. Sparks, 02/13/24, pod#5
-Severe
-Severe 2v CAD
-LVEF 35-40% preop, improved to 55% postop per intraop KHADAR
-HTN
-Hyperlipidemia
-Gout
-Osteoarthritis
-Hx Diverticulitis S/P bowel resection
-S/p rotator cuff repair
-S/p appendectomy
-Acute postop blood loss/Anemia - s/p 2 pRBCs on 02/13 for hg 7.5
-Acute postop thrombocytopenia - ASA and Plavix held
-Acute postop atelectasis
-Acute postop hypovolemia with subsequent hypervolemia
-Acute postop MONICA, 2.4 (0.9-1.1 preop)
-Acute postop pulmonary insufficiency
-Acute postop hyponatremia
Discussed patient care with: Cardiology, Nursing, Respiratory Therapy, Pharmacy and Care Team
Subjective
Procedure
S/P AVR (#27 Inspiris)/CABG x 2 (HOWARD-LAD, SVG - PDA)/R EVH, by Dr. Sparks, 02/13/24
-
Date of Service: February 18, 2024
Pt C/O mild incisional pain, otherwise feels well
Objective Data
-
Lab Results
02/18/24 03:38
PT 15.4 Sec (11.4-14.6) H 02/14/24 04:00
INR 1.24 02/14/24 04:00
APTT 30.9 Sec (23.4-35.0) 02/13/24 13:52
Vital Signs
Vital Signs
Temp Pulse Resp BP Pulse Ox
98.3 F 86 18 123/93 93
02/18/24 03:39 02/18/24 03:39 02/18/24 03:39 02/18/24 03:30 02/18/24 03:39
CT Intake/Output/Weight
02/17/24 02/17/24 02/18/24
06:59 18:59 06:59
Intake Total 21.0 / 538.8 975.6 / 1095.6 120 / 1095.6
Output Total 480 / 1060 2400 / 2920 520 / 2920
Balance -459.0 / -521.2 -1424.4 / -1824.4 -400 / -1824.4
SaO2: 93 (2L)
Physical Exam
-
General: Awake, Oriented and AOx3
Cardiovascular: Regular rate & rhythm, No Murmurs, No Rub and No Gallop
Respiratory: Decreased Breath Sounds (at bases)
Sternum: Stable
Incision: Clean, Dry, Intact and Dressing Intact
Extremities: Other (+trace edema)
Data Reviewed
-
Lab Results: Results Reviewed
Medications: Active Meds Reviewed
Chest X-Ray: Report Reviewed and Image Reviewed
ECG: Report Reviewed and Image Reviewed
[2024-02-18] MEDS: TYLENOL 1000 MG PO ×3 (06:09→19:56)
[2024-02-18] MEDS: NEURONTIN 100 MG PO (08:36)
[2024-02-18] MEDS: NSS IV (08:36)
[2024-02-18] MEDS: LIDOCAINE 4% PATCH TOPICAL (08:36)
[2024-02-18] MEDS: KCL 40 MEQ PO (08:36)
[2024-02-18] MEDS: SENOKOT-S PO ×2 (08:36→19:58)
[2024-02-18] MEDS: CRESTOR 20 MG PO (08:36)
[2024-02-18] MEDS: LOPRESSOR 12.5 MG PO ×2 (08:36→19:57)
[2024-02-18] MEDS: LOW STRENGTH ASPIRIN 81 MG PO (08:36)
[2024-02-18] MEDS: PLAVIX 75 MG PO (08:36)
[2024-02-18] MEDS: PROTONIX 40 MG PO (08:36)
--- NOTE | 2024-02-18 08:54 | PTCARENOTE ---
Assumed care of patient from warehouse supervisor 3rd shift RN. AAO x3. Sitting up in the chair. Denies pain. SR w/ BBB . 2 L 93%, attempt to wean to room air pulse ox 88%. Replaced with 1 L. Using IS to 1750. No cough present. Abdomen soft and non tender,
appetite fair. No edema appreciated. Pulses palpable. Plan for day discussed.
[2024-02-18] MEDS: LASIX 40 MG PO (09:54)
[2024-02-18] MEDS: KCL 20 MEQ PO ×2 (09:54→23:02)
--- NOTE | 2024-02-18 11:30 | PTCARENOTE ---
Pt c/o burning eyes and some blurriness while working with cardiac rehab. When questioned, pt states this was first noticed immediately post op. No issues with balance or reading when questioned further. CT PA notified. will monitor.
--- NOTE | 2024-02-18 12:39 | PTCARENOTE ---
Pt bladder scanned for 400 ml urine, pt able to void 375 ml yellow urine after. Will monitor.
--- NOTE | 2024-02-18 15:58 | PTCARENOTE ---
Ambulated entire loop in hallway with RN. Pulse ox 92-96% with ambulation. Tolerated well. Voided in bathroom upon return. VSS. assessment unchanged from prior.
[2024-02-18] MEDS: PACERONE 200 MG PO ×2 (16:08→23:02)
--- NOTE | 2024-02-18 20:00 | PTCARENOTE ---
assumed care of patient @ 1900. received pt laying in bed, AOX3. VSS on RA. no c/o pain. NSR on monitor. V wire insulated. good pulses, no edema. Lungs clear, diminished satting low -mid 90s on room air. Having BMs, belly soft, nontender. voiding
appropriate amounts. sternotomy covered with aquacel CDI, R knee and R groins sites closed with glue CDI. PIVs patent. pt resting comfortably with call castillo within reach.
--- NOTE | 2024-02-19 00:14 | PTCARENOTE ---
no change in assessment, pt resting comfortably with call castillo within reach .
--- NOTE | 2024-02-19 03:40 | W.PN.CT ---
Today's Communication / Plan
-
-No major issues overnight. Hemodynamically and neurologically intact
-Tolerating resumption of Lopressor, cont. Amiodarone
-Cont. diuresis, PO Lasix, hyponatremic @ 134. Fluid restriction
-Replete K
-Creatinine is back to baseline, 1.1
-Encourage use of IS
-Weaned off O2 yesterday, RA O2sats 91-92%
-OOB into chair/Ambulate
-Cut temporary PW
-Home today
Assessment / Plan
-
Assessment:
-S/P AVR (#27 Inspiris)/CABG x 2 (HOWARD-LAD, SVG - PDA)/R EVH, by Dr. Sparks, 02/13/24, pod#6
-Severe
-Severe 2v CAD
-LVEF 35-40% preop, improved to 55% postop per intraop KHADAR
-HTN
-Hyperlipidemia
-Gout
-Osteoarthritis
-Hx Diverticulitis S/P bowel resection
-S/p rotator cuff repair
-S/p appendectomy
-Acute postop blood loss/Anemia - s/p 2 pRBCs on 02/13 for hg 7.5
-Acute postop thrombocytopenia - ASA and Plavix held
-Acute postop atelectasis/pleural effusion
-Acute postop hypovolemia with subsequent hypervolemia
-Acute postop MONICA, 2.4 (0.9-1.1 preop)
-Acute postop pulmonary insufficiency
-Acute postop hyponatremia
Discussed patient care with: Cardiology, Nursing, Respiratory Therapy, Pharmacy and Care Team
Subjective
Procedure
S/P AVR (#27 Inspiris)/CABG x 2 (HOWARD-LAD, SVG - PDA)/R EVH, by Dr. Sparks, 02/13/24
-
Date of Service: February 19, 2024
Pt c/o mild incisional pain, otherwise feels well
Objective Data
-
PT 15.4 Sec (11.4-14.6) H 02/14/24 04:00
INR 1.24 02/14/24 04:00
APTT 30.9 Sec (23.4-35.0) 02/13/24 13:52
Vital Signs
Vital Signs
Temp Pulse Resp BP Pulse Ox
98.2 F 74 16 123/70 91
02/19/24 00:13 02/19/24 00:13 02/19/24 00:13 02/18/24 23:02 02/19/24 00:13
CT Intake/Output/Weight
02/18/24 02/18/24 02/19/24
06:59 18:59 06:59
Intake Total 120 / 1095.6 720 / 1200 480 / 1200
Output Total 520 / 2920 675 / 675
Balance -400 / -1824.4 45 / 525 480 / 525
SaO2: 91 (RA)
Physical Exam
-
General: Awake, Oriented and AOx3
Cardiovascular: Regular rate & rhythm, No Murmurs, No Rub and No Gallop
Respiratory: Decreased Breath Sounds (at bases, otherwise clear)
Sternum: Stable
Incision: Clean, Dry, Intact and Dressing Intact
Extremities: Other (+trace edema)
Data Reviewed
-
Lab Results: Results Reviewed
Medications: Active Meds Reviewed
Chest X-Ray: Report Reviewed and Image Reviewed
ECG: Report Reviewed and Image Reviewed
[2024-02-19 04:23] VITALS: BP 140/94
[2024-02-19 04:24] VITALS: BP 143/93
[2024-02-19 04:44] LABS: Hematocrit 28.7 % (39.0-52.0); Hemoglobin 10.1 g/dL (13.0-18.0); Mean Corp Hgb Conc. 35.2 g/dL (33.0-37.0); Mean Corpuscular Hgb 31.2 pg (27.0-31.0); Mean Corpuscular Volume 88.6 fL (80.0-94.0); Mean Platelet Volume 9.7 fL (7.4-10.4); Platelet Count 127 10^3/uL (130-400); Red Blood Cell Count 3.24 10^6/uL (4.70-6.10); Red Cell Dist. Width 14.6 % (11.5-14.5); White Blood Cell Count 7.7 10^3/uL (4.8-10.8)
[2024-02-19 05:14] LABS: Blood Urea Nitrogen 21 mg/dl (9-20); Calcium 8.8 mg/dl (8.4-10.2); Carbon Dioxide 25 mmol/L (22-30); Chloride 102 mmol/L (98-107); Estimated Creatinine Clearance 50 ml/min; Glucose 109 mg/dl (70-99); Magnesium 1.8 mg/dl (1.6-2.3); Potassium 3.8 mmol/L (3.5-5.1); Sodium 134 mmol/L (135-145); eGFR > 60.00
[2024-02-19 06:00] VITALS: BMI 26.1
[2024-02-19] MEDS: TYLENOL 1000 MG PO (07:06)
[2024-02-19 07:24] VITALS: BP 138/95
[2024-02-19] MEDS: LIDOCAINE 4% PATCH TOPICAL (07:26)
[2024-02-19] MEDS: KCL ELIXIR 40 MEQ PO (07:26)
[2024-02-19] MEDS: PLAVIX 75 MG PO (07:51)
[2024-02-19] MEDS: LOPRESSOR 12.5 MG PO (07:51)
[2024-02-19] MEDS: CRESTOR 20 MG PO (07:51)
[2024-02-19] MEDS: PROTONIX 40 MG PO (07:51)
[2024-02-19] MEDS: LOW STRENGTH ASPIRIN 81 MG PO (07:51)
[2024-02-19] MEDS: PACERONE 200 MG PO (07:51)
--- NOTE | 2024-02-19 08:12 | PTCARENOTE ---
Assumed care of patient from shift production associate RN. AAO x 3, States did not sleep well last night. Wants to go home. SR BBB on monitor. Epicardial wire insulated. Lungs decreased bilaterally t/o. IS encouraged, achieving 1750. Abdomen wnl, states BM
this am. Voiding w/o difficulty. Surgical sites c,d,i. Pulses palpable. No edema appreciated.
--- NOTE | 2024-02-19 08:50 | W.DCSUMMARY ---
Discharge Summary
Discharge Data
Date of Admission: 02/13/24
Date of Discharge: 02/19/24
Total time spent discharging patient (in min): 45
-
Pending Results: No
Hospital Course
Primary care physician: None
Outpatient harp action assembler: Shala Denney MD
Inpatient consultants:
Kodi Robin MD (Cardiology)
Clarice Islas MD (Nephrology)
Severiano Oconnor MD (Collection Card Clerk)
Procedures:
Aortic valve replacement with a 27 mm Monae Inspiras Resilia bioprosthetic valve, coronary artery bypass grafting x 2 with left internal mammary artery to left anterior descending, saphenous vein graft to posterior descending artery, right lower
extremity endoscopic vein harvest by Dr. Paul Sparks 02/13/24
Primary Diagnosis:
Coronary artery disease
Secondary Diagnoses:
Severe aortic stenosis
Acute postoperative blood loss anemia requiring blood transfusion
Acute postoperative thrombocytopenia
Acute postoperative atelectasis
Acute postoperative pleural effusion
Acute postoperative hypovolemia
Acute postoperative acute kidney injury
Acute postoperative pulmonary insufficiency
Acute postoperative hyponatremia
Hyperlipidemia
Hypertension
Gout
Osteoarthritis
History of diverticulitis status post bowel resection
Status post rotator cuff repair
Status post appendectomy
HPI: This is a pleasant 68-year-old gentleman with a past medical history of medical noncompliance, hypertension, hyperlipidemia, gout, diverticulosis, and daily alcohol abuse. He was evaluated in the emergency department on 10/29/2023 for chest
pain with electrocardiogram findings of premature ventricular complexes, prolonged QT interval, T wave inversion in leads V4 through V8 and inferior leads. His echocardiogram on 11/25/2023 revealed severe aortic stenosis with a mean gradient of 55
mmHg and an aortic valve area of 1.0 cm�. He was referred by his primary care provider to cardiology for further evaluation. His cardiac catheterization report performed on 01/10/2024 demonstrates a severe calcification of his aortic annulus, a 70
to 80% mid left anterior descending stenosis immediately distal to the takeoff of a large second diagonal branch, a large dominant vessel with an eccentric 70% mid right coronary artery stenosis and a highly angulated segment. His most recent
echocardiogram from 01/28 revealed left ventricular ejection fraction of 50 to 55%, trileaflet thickened aortic valve with restricted leaflet motion and moderate to severe aortic stenosis. He has been recommended for surgical evaluation for aortic
valve replacement as well as coronary bypass grafting and he presents today for this consultation.
Hospital course: Patient underwent aortic valve replacement with a bioprosthetic valve as well as coronary artery bypass grafting by Dr. Paul Sparks on. Please refer to his separately dictated operative report for complete details. The
patient was transferred to the open-heart unit on dobutamine, Levophed, insulin, Precedex. Patient was extubated per usual postop protocol at 1835. Patient progressed well through postop day 0.
Postoperative day #1: Vasoactive medications were weaned off. Invasive hemodynamic monitoring lines were removed. Patient was transfused 2 units of packed red blood cells. Bumex drip was initiated for diuresis. Acute kidney injury was noted and
nephrology was subsequently consulted and dobutamine was restarted.
Postoperative day #2: Patient was maintained on dobutamine. Aspirin and Plavix were briefly held due to evolving thrombocytopenia post cardiopulmonary bypass. Bumex was transitioned to IV boluses.
Postoperative day #3: Platelet count remains low and aspirin Plavix remains on hold. Pleural chest tubes were discontinued. Dobutamine was slowly weaned down to 2. Beta-claudy was held due to dobutamine.
Postoperative day #4: Platelet count had started to recover. Aspirin and Plavix was restarted. Dobutamine is weaned off. Gentle diuresis ongoing.
Postoperative day #5: Gentle diuresis was continued. The patient was weaned to room air. Low-dose beta-blockers were started. The patient is ambulating with minimal assistance.
Postoperative day #6: The patient is cleared for discharge.
Home medication changes: Patient was started on Plavix for dual antiplatelet therapy post coronary artery bypass grafting. Patient was discharged on low-dose metoprolol as well as high intensity statin for usual guideline directed therapy post
coronary artery bypass grafting. The beta-claudy can be titrated outpatient as it was started late in his postoperative recovery here.
Discharge Plan
-
Patient Disposition: Home (Routine Discharge)
Discharge Diagnosis/Procedures: -Status post aortic valve replacement (27 mm Inspiris)/coronary artery bypass grafting x 2 (left internal mammary artery-left anterior, saphenous vein graft-posterior descending artery)/right endoscopic vein harvest,
by Dr. Sparks, 02/13/24
-Severe aortic stenosis
-Coronary artery disease
-Left ventricular ejection fraction 35-40% preoperative, improved to 55% postoperative per intraoperative transesophageal echocardiogram
-Hypertension
-Hyperlipidemia
-Gout
-Osteoarthritis
-History of diverticulitis status post bowel resection
-Status post rotator cuff repair
-Status post appendectomy
-Acute postoperative blood loss/Anemia -status post 2 packed red blood cells on 02/13 for hemoglobin 7.5
-Acute postoperative thrombocytopenia -aspirin and Plavix held temporarily
-Acute postoperative atelectasis/pleural effusion
-Acute postoperative hypovolemia with subsequent hypervolemia
-Acute postoperative acute kidney injury
-Acute postoperative pulmonary insufficiency
-Acute postoperative hyponatremia
Diet: Low Cholesterol and Low Sodium
Activity: No strenuous activity
Driving Restrictions: Not until seen by your Dr
Bathing Restrictions: OK to Shower
Other Services: Cardiac Rehab
Specialty Instructions: Weigh Daily- Call MD for wt gain/loss 3 lbs overnight/5 lbs in 1 week
Activity Restrictions/Additional Instructions:
ACTIVITY:
-No strenuous activity: no heavy lifting, pushing, pulling anything over 15 pounds for one month
-continue to use stairs as tolerated
DRIVING RESTRICTIONS:
-No driving for one month or until approved by your surgeon
WOUND CARE:
-Shower daily. Use soap & water.
-No lotions, creams or powders on incision area.
DIET:
-continue a low fat/low cholesterol diet.
-IF you are diabetic, continue carb controlled diet.
CARDIAC REHAB:
-Please make appointment to start in 5-6 weeks with your local hospital program. (See Cardiac Rehabilitation Discharge Booklet).
SPECIALTY INSTRUCTIONS:
-Weigh yourself daily. Call your physician for any weight gain/loss of 3 lbs overnight or 5 lbs in one week.
-REPORT any clicking noise or uneven appearance of your sternum to your surgeon immediately.
-If you smoke, you are instructed to quit. The [place] smoking hotline phone number is [phone]
Referrals:
CT Transitional Care Nurse [Outside] (The Cardiothoracic Transitional Care Nurse will call you to set up a visit in 1-2 days.)
[facility] [Outside] - 03/20/24 8:00 am
(Cardiac Rehab Orientation appointment and� First Exercise appointment is on __03/20 at 8:00 am.____
The Cardiac Rehab gym is located on the first floor of the [facility].)
Shala Denney MD [Non-Admitting Privileges] - 04/09/24 10:40 am
NONE,* [Family Provider] -
Paul Sparks MD [Active] - 03/20/24 1:30 pm
Prescriptions:
New
acetaminophen 325 mg Tablet
650 mg PO Q4HPRN PRN (Reason: mild pain,headache,temp >101F ) Qty: 30 0RF
clopidogrel 75 mg Tablet
75 mg PO DAILY Qty: 30 3RF
oxycodone 5 mg Tablet
5 mg PO Q4HPRN PRN (Reason: moderate pain) Qty: 30 0RF
metoprolol tartrate 25 mg Tablet
12.5 mg PO Q12 Qty: 30 2RF
Continued
losartan 25 mg Tablet
25 mg PO DAILY
aspirin 81 mg Tablet,Chewable
81 mg PO DAILY
rosuvastatin 20 mg Tablet
20 mg PO DAILY
Brain Health
1 dose PO DAILY
Discharge Orders:
Discharge Patient (As Directed); Ordered 02/19/24
Ordered By: Wagner Kidd
Care Plan Goals
Care Plan Goals:
Problem: Readiness for enhanced knowledge related to diagnosis and treatment plan
Goal: Understand your diagnosis and treatment plan needs, including medications if applicable.
Instructions: Know your diagnosis, underlying causes and treatment plan options, including medications if applicable. Consult with your health care team to learn about your diagnosis and treatment plan, including medications if applicable.
Discharge Date and Time
Print Language: GREEK
--- NOTE | 2024-02-19 09:03 | PTCARENOTE ---
Pt ambulated approx 300 feet in hallway with RN this am, gait steady, no SOB appreciated. Pt able to complete stairs w/o difficulty showing proper technique. Assisted into shower by RN.
--- NOTE | 2024-02-19 09:15 | PTCARENOTE ---
Epicardial wires cut and retracted.
--- NOTE | 2024-02-19 10:12 | PTCARENOTE ---
Discharge instructions reviewed with patient. Questions answered. Pt states understanding. INT x 2 removed along with telemetry pack. Awaiting ride.
[2024-02-19] MEDS: SENOKOT-S PO (10:18)
== END 2024-02-19 11:33 | disposition home or self-care (01) | DRG 219 ==
LOC: CVICU 04:58
PROVIDERS: Anesthesiology; Clinical Nurse Specialist Acute Care; Internal Medicine Cardiovascular Disease; Physician Assistant Medical; ADMITTING PHYSICIAN Thoracic Surgery (Cardiothoracic Vascular Surgery); CONSULT PHYSICIAN Internal Medicine Critical Care Medicine; CONSULT PHYSICIAN Student in an Organized Health Care Education/Training Program
PROC: 02RF08Z Replacement of Aortic Valve with Zooplastic Tissue, Open Approach (ICD-10-PCS; 2024-02-13)
PROC: 06BP4ZZ Excision of Right Saphenous Vein, Percutaneous Endoscopic Approach (ICD-10-PCS; 2024-02-13)
PROC: 021009W Bypass Coronary Artery, One Artery from Aorta with Autologous Venous Tissue, Open Approach (ICD-10-PCS; 2024-02-13)
PROC: B24BZZ4 Ultrasonography of Heart with Aorta, Transesophageal (ICD-10-PCS; 2024-02-13)
PROC: 02100ZC Bypass Coronary Artery, One Artery from Thoracic Artery, Open Approach (ICD-10-PCS; 2024-02-13)
PROC: 5A1221Z Performance of Cardiac Output, Continuous (ICD-10-PCS; 2024-02-13)
PROC: 30233N1 Transfusion of Nonautologous Red Blood Cells into Peripheral Vein, Percutaneous Approach (ICD-10-PCS; 2024-02-14)
DX: I35.0 Nonrheumatic aortic (valve) stenosis (principal); J95.1 Acute pulmonary insufficiency following thoracic surgery; N17.0 Acute kidney failure with tubular necrosis; D62 Acute posthemorrhagic anemia; J98.11 Atelectasis; J90 Pleural effusion, not elsewhere classified; E87.1 Hypo-osmolality and hyponatremia; D69.59 Other secondary thrombocytopenia; E86.1 Hypovolemia; N99.0 Postprocedural (acute) (chronic) kidney failure; Y83.2 Surgical operation with anastomosis, bypass or graft as the cause of abnormal reaction of the patient, or of later complication, without mention of misadventure at the time of the procedure; I25.10 Atherosclerotic heart disease of native coronary artery without angina pectoris; E78.00 Pure hypercholesterolemia, unspecified; I10 Essential (primary) hypertension; M19.90 Unspecified osteoarthritis, unspecified site; I45.10 Unspecified right bundle-branch block; M10.9 Gout, unspecified; F10.10 Alcohol abuse, uncomplicated; Z22.322 Carrier or suspected carrier of Methicillin resistant Staphylococcus aureus; Z79.82 Long term (current) use of aspirin; Z79.899 Other long term (current) drug therapy; Z82.49 Family history of ischemic heart disease and other diseases of the circulatory system; Z82.3 Family history of stroke
CPT/HCPCS: 88305; 88311; 36415; 71045; 71046; 76770; 80048; 80053; 81003; 81015; 82248; 82330; 82565; 82570; 82805; 82810; 82947; 82962; 83036; 83735; 84132; 84300; 84302; 84520; 85014; 85018; 85025; 85027; 85049; 85610; 85730; 86850; 86900; 86901; 86920; 87070; 87147; 93005; 93312; 93320; 93325; 93880; 94002; 94010; P9016; P9045; P9047

== ENCOUNTER 2024-02-25 09:35 | Inpatient (IN) | payer OTHER, SELFPAY ==
[2024-02-24 12:26] VITALS: BP 129/98
[2024-02-24 12:43] LABS: % Basophils 0.7 % (0-2); % Eosinophils 1.2 % (0-6); % Immature Granulocytes 0.9 % (0-0.5); % Lymphocytes 14.5 % (20.5-51.1); % Monocytes 7.5 % (1.7-9.3); % Neutrophils 75.2 % (42.2-75.2); Absolute Basophils 0.1 10^3/uL (0-0.2); Absolute Eosinophils 0.1 10^3/uL (0-0.7); Absolute Immature Granulocytes 0.1 10^3/uL (0-0.05); Absolute Lymphocytes 1.2 10^3/uL (1.2-3.4); Absolute Monocytes 0.6 10^3/uL (0.1-0.6); Absolute Neutrophils 6.3 10^3/uL (1.4-6.5); Hematocrit 32.2 % (39.0-52.0); Mean Corp Hgb Conc. 34.2 g/dL (33.0-37.0); Mean Corpuscular Hgb 30.9 pg (27.0-31.0); Mean Corpuscular Volume 90.4 fL (80.0-94.0); Nucleated Red Blood Cells % 0 % (-); Platelet Count 316 10^3/uL (130-400); Red Blood Cell Count 3.56 10^6/uL (4.70-6.10); Red Cell Dist. Width 15.9 % (11.5-14.5); White Blood Cell Count 8.4 10^3/uL (4.8-10.8)
[2024-02-24 13:09] LABS: ALT (SGPT) 68 U/L (0-50); AST (SGOT) 61 U/L (17-59); Albumin 3.7 g/dl (3.5-5.0); Alkaline Phosphatase 78 U/L (38-126); Blood Urea Nitrogen 8 mg/dl (9-20); Calcium 9.1 mg/dl (8.4-10.2); Carbon Dioxide 23 mmol/L (22-30); Chloride 107 mmol/L (98-107); Glucose 102 mg/dl (70-99); Sodium 137 mmol/L (135-145); Total Bilirubin 1.1 mg/dl (0.2-1.3); Total Protein 6.5 g/dl (6.3-8.2); eGFR > 60.00
--- NOTE | 2024-02-24 15:09 | ED.GENMED ---
History of Present Illness
General
Chief Complaint: Visual Problem
Source: patient
Exam Limitations: none
Time Seen by Provider: 02/24/24 14:52
Nursing documentation reviewed up to this point in time: agreed with
Travel History
Have you had any contact with someone who has COVID-19?: No
Do you have any symptoms of coronavirus? Fever > 100 degrees, chills, cough, shortness of breath, sore throat, loss of taste or smell, muscle aches, or headache?: No
History of Present Illness
History of Present Illness:
Patient is a 68-year-old male with past medical history of hypertension hyperlipidemia gout diverticulosis alcohol abuse and recent aortic valve replacement CABG x 2. Patient reports since he was discharged in the hospital he has had issues with
his vision. He has not seen a provider for this but visiting nurses recommend that he come to the ER. He complains of having blurry vision from both of his eyes. Intermittently he will see sparkles out of his left eye. He otherwise has no
complaints. He denies any headache double vision.
Review of Systems
Review of Systems
Allergies reviewed?: Yes
Other source history: family
All Other Systems: ROS reviewed and negative except as documented in HPI and ROS
Constitutional: Reports no symptoms; Denies fever, fatigue or chills
EENT: Reports other (Blurred vision since surgery from both eyes)
Respiratory: Reports no symptoms
Cardiac: Reports no symptoms
ABD/GI: Reports no symptoms
: Reports no symptoms
Musculoskeletal: Reports no symptoms
Skin: Reports no symptoms
Neurological: Reports no symptoms
Hematologic/Lymphatic: Reports no symptoms
Psychiatric: Reports no symptoms
Phy Exam
General Physical Exam
General Presentation: no apparent distress
General age: appears stated age
General Skin: warm and dry
General Habitus: elderly
General Mental: alert
General Hydration: appears well hydrated
ENT Exam
ENT Exam: EOMI
Eye Exam
Eye Exam: PERRL, EOMI and visual lagos normal
Able to obtain acuity?: Yes
Eye Exam General: PERRL: bilateral and EOM intact: bilateral
Pupil Exam: Bilateral: round and reactive
Cardiovascular Exam
Cardiovascular Exam: regular rate/rhythm, no murmur and normal peripheral pulses
Pulmonary Exam
Pulmonary Exam: lungs clear and no respiratory distress
Neurological Exam
Neurological Exam: alert and oriented x3
Musculoskeletal Exam
Musculoskeletal Exam: full ROM
Skin Exam
Skin Exam: normal color and warm/dry
Psychiatric Exam
Psychiatric Exam: normal mood/affect
Course
Orders/Labs/Results
Orders:
Orders
02/24/24 12:36
CBC/With Diff [Complete Blood Count/With Diff] Urgent
Cardiovascular Evaluation Urgent
Comprehensive Metabolic Panel Urgent
Glycohemoglobin (HgbA1c) Urgent
02/24/24 Dinner
Regular
At Your Request: Limited Participation
02/24/24 15:17
CT Head W/o Iv Contrast Urgent
Comment:
Reason For Exam: visual changes
02/24/24 17:40
Admit/Transfer Patient As Directed
Co-Sign Provider:
Level of Care: Observation services
Assign to:: Telemetry
Physician / Group: epi
Diagnosis: cva
Reason for Telemetry: Arrhythmia
Date to Stop Telemetry: 02/27/24
Time to Stop Telemetry: 11:00
Code Status As Directed
Resuscitation Status: Full Code
02/24/24 19:36
Acetaminophen [Tylenol] 650 mg PO Q4HPRN PRN
Oxycodone [Roxicodone] 5 mg PO Q4HPRN PRN
02/24/24 19:36
Activity As Directed
Activity Level: As Tolerated
Pneumatic Compression Sleeves As Directed
Type: Knee high
Vital Signs As Directed
Frequency: Per unit guidelines
Carotid US [US Cerebrovascular] Routine
Comment:
Reason For Exam: cva
DX Deep Vein Thrombosis Video Routine
02/24/24 20:00
Metoprolol [Lopressor] 12.5 mg PO Q12
02/25/24 06:00
Complete Blood Count/With Diff IN AM
Comprehensive Metabolic Panel IN AM
02/25/24 08:00
Aspirin Chewable [Low Strength Aspirin] 81 mg PO DAILY
Clopidogrel Bisulfate [Plavix] 75 mg PO DAILY
Losartan [Cozaar] 25 mg PO DAILY
Rosuvastatin Calcium [Crestor] 20 mg PO DAILY
02/27/24 11:00
DC Protocol for Telemetry ONCE
Abnormal Lab Results
02/24/24
12:36
RBC 3.56 L 10^6/uL
(4.70-6.10)
Hgb 11.0 L g/dL
(13.0-18.0)
Hct 32.2 L %
(39.0-52.0)
RDW 15.9 H %
(11.5-14.5)
Abs Immat Gran (auto) 0.1 H 10^3/uL
(0-0.05)
Immature Gran % 0.9 H %
(0-0.5)
Lymphocytes % 14.5 L %
(20.5-51.1)
BUN 8 L mg/dl
(9-20)
Glucose 102 H mg/dl
(70-99)
AST 61 H U/L
(17-59)
ALT 68 H U/L
(0-50)
Triglycerides 162 H mg/dl
(10-149)
VLDL Cholesterol, Calc 32 H mg/dl
(0-30)
02/24/24 12:36
02/24/24 12:36
Vital Signs
Initial and Last Documented VS:
Initial Vital Signs
Temp Pulse Resp BP Pulse Ox
98.4 F 72 16 129/98 97
02/24/24 12:26 02/24/24 12:26 02/24/24 12:26 02/24/24 12:26 02/24/24 12:26
Last Documented Vital Signs
Temp Pulse Resp BP Pulse Ox
98.3 F 70 20 138/69 96
02/24/24 20:01 02/24/24 20:24 02/24/24 20:01 02/24/24 20:24 02/24/24 20:01
MDM/Problems Addressed
Differential Diagnosis Includes:
Not limited to: Visual disturbance CVA
MDM/Problems Addressed:
Patient is a 68year-old male status post aortic valve replacement and CABG x 2 02/13/2024 presents with blurry vision since. He describes just feeling a little blurry out of both of his eyes intermittently he sees left sparkles from his left eye. He
denies any actual eye pain trauma. He is on Plavix and aspirin. He did take both today.
Patient denies any headache on exam patient has no visual field deficit but describes this as a general blurriness. He had a CAT scan today which shows 2 cm subacute nonhemorrhagic infarct in the posterior medial aspect of the right occipital lobe.
will adm
Chronic conditions affecting care:
Recent CABG and valve replacement on Plavix and aspirin
*Radiology
Radiology exam reviewed: radiology read reviewed
*Critical Care Note
Total Time (30-74mins, 75-104mins- exclusive of procedures): Not Applicable
ED Attending Note
-
Portions of this chart may have been created with voice recognition software.� Occasional wrong word or��sound alike� substitutions may have occurred due to the inherent limitations of voice recognition software.
Discharge Plan
Departure
Patient Disposition: Admit
Date of Disposition: 02/24/24
Time of Disposition: 17:15
Admit to: Telemetry
Admit to doctor: hospitalist
Presentation/result/management discussed w/ accepting MD/DO: Hospitalist
Condition: Fair
Covid-19: Not Applicable
Discharge Problem:
subacute infarct occipital lobe, Visual disturbance
Interventions
Interventions:
*Risk Screen - Suicide Last Done: 02/24/24 12:26
*General Assessment Last Done: 02/24/24 12:26
*Neglect/Abuse Screening Last Done: 02/24/24 12:26
ED- Fall Risk Assessment Last Done: 02/24/24 15:12
*ED COVID-19 Vaccine History Last Done: 02/24/24 15:12
*Nursing Disposition Last Done: 02/24/24 19:31
ED- Neurological Assessment Last Done: 02/24/24 15:12
ED-EENT Assessment Last Done: 02/24/24 15:12
ED Swallowing Screen Last Done: 02/24/24 18:43
Discharge Date and Time
Discharge Date/Time: 02/24/24 19:31
[2024-02-24 17:00] VITALS: BP 129/89
--- NOTE | 2024-02-24 17:43 | HPS.HSE ---
Family Physician
-
Family Physician: * NONE
Chief Complaint
-
blurry vision
History of Present Illness
68-year-old male with past medical history of severe aortic stenosis, CAD status post AVR and CABG x 2 recently, hypertension, hyperlipidemia, gout, diverticulosis, alcohol use disorder, presenting with blurry vision and left visual field flickering
from the left eye which started few days after recent AVR/CABG surgery. Continues to have bilateral blurry vision and yesterday he had continuous flickering from the left eye but this has improved. He denies any difficulty speaking, swallowing,
headache, numbness or tingling, focal weakness or vertigo or dizziness or balance dysfunction.
He denies any chest pain or dizziness or palpitations.
He drinks 2 beers a day. He denies smoking. He denies any drugs.
Patient was discharged from the hospital 5 days ago after undergoing aortic valve replacement and coronary artery bypass grafting x 2 on 02/12. Postoperatively patient required pressors and was eventually extubated.
Medical History
Past Medical History
Past Medical History: Reports Other (severe aortic stenosis, CAD status post AVR and CABG x 2 recently, hypertension, hyperlipidemia, gout, diverticulosis, alcohol use disorder)
Past Surgical History: Reports Other (CABG, TAVR )
Social History
Tobacco: Non-smoker
Alcohol: Daily
Drug: None
Family History
Family History: Not pertinent
Allergies / Home Medications
Allergies reflects when Allergies were last updated in [facility].
Home Medications with original date entered in [facility]
Allergy/Medication List:
Allergies
Allergy/AdvReac Type Severity Reaction Status Date / Time
No Known Allergies Allergy Verified 02/24/24 12:25
Home Medications
Brain Health 1 dose PO DAILY Supplement 12/23/23
aspirin 81 mg chewable tablet 81 mg PO DAILY Blood Clot Prevention/Tx 12/23/23
losartan 25 mg tablet 25 mg PO DAILY Blood Pressure 12/23/23
rosuvastatin 20 mg tablet 20 mg PO DAILY High Cholesterol 12/23/23
acetaminophen 325 mg tablet 650 mg (2 x 325 mg) PO Q4HPRN PRN mild pain,headache,temp >101F #30 tabs 02/19/24
clopidogrel 75 mg tablet 75 mg PO DAILY #30 tabs 02/19/24
metoprolol tartrate 25 mg tablet 12.5 mg (1/2 x 25 mg) PO Q12 #30 tabs 02/19/24
oxycodone 5 mg tablet 5 mg PO Q4HPRN PRN moderate pain #30 tabs 02/19/24
Review of Systems
-
History Source: Patient
A 12 point ROS was completed and negative except as noted: Yes
Constitutional: Reports No Symptoms
EENT: Reports No Symptoms
Respiratory: Reports No Symptoms
Cardiac: Reports No Symptoms
Abdomen/GI: Reports No Symptoms
: Reports No Symptoms
Musculoskeletal: Reports No Symptoms
Skin: Reports No Symptoms
Neurological: Reports No Symptoms
Endocrine: Reports No Symptoms
Hematologic/Lymphatic: Reports No Symptoms
Psych: Reports No Symptoms
Physical Exam
Vital Signs
Vital Signs
Temp Pulse Resp BP Pulse Ox
98.4 F 72 16 129/98 97
02/24/24 12:26 02/24/24 12:26 02/24/24 12:26 02/24/24 12:26 02/24/24 12:26
Physical Exam
General: Well Developed, Well Nourished and No Apparent Distress
HEENT: NormoCephalic, Moist mucous membranes and Atraumatic
Respiratory: Clear
Cardiac: S1/S2 and Regular Rhythm; No Murmur or Rub
GI: Soft, Non Tender, Non Distended and Normal Bowel Sounds; No Organomegaly
Rectal: Deferred by Provider
Musculoskeletal: No Clubbing, No Cyanosis and No Edema
Skin: No Rash
Neuro: Nonfocal/grossly intact
Laboratory Results
-
02/24/24 12:36
02/24/24 12:36
Laboratory Results
Total Bilirubin 1.1 mg/dl (0.2-1.3) 02/24/24 12:36
AST 61 U/L (17-59) H 02/24/24 12:36
ALT 68 U/L (0-50) H 02/24/24 12:36
Alkaline Phosphatase 78 U/L (38-126) 02/24/24 12:36
Data Reviewed
-
Lab Data: Labs Reviewed by me
Old Records: Reviewed
Impression/Plan
-
IMPRESSION:
PLAN:
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
-2 cm as per CAT scan
-Telemetry monitoring
-Continue aspirin, Plavix
-Patient cannot have MRI until 6 weeks after TAVR
-Check A1c and lipid panel
-Check carotid ultrasound
-Neurology consulted
# Mild transaminitis
-Likely from recovering hepatic blood flow after recent TAVR/CABG requiring pressors
-Continue to monitor
Severe aortic stenosis status post TAVR
CAD status post CABG x 2
-Continue metoprolol
-Continue as needed oxycodone for postsurgical pain
Ischemic cardiomyopathy
-EF of 35 to 40%
Essential hypertension
-Continue losartan
Hyperlipidemia
-Continue statin
Gout
Alcohol use disorder
-2 beers daily
Diverticulosis
Chronic anemia
-Hemoglobin stable
Full code
DVT prophylaxis�SCDs
Regular diet
[2024-02-24 18:48] VITALS: BP 158/82
[2024-02-24 19:00] VITALS: BP 121/75
--- NOTE | 2024-02-24 20:00 | PTCARENOTE ---
Pt arrived to unit from ED and ambulated independently from stretcher to bed. Pt is AAOx3, no complaints of pain. VS on admission stable. Pt given stroke education packet, NIH 0 on admission. Pt refusing pneumatic compression sleeves but
ambulating independently.
[2024-02-24 20:01] VITALS: BP 138/69; BMI 24.3
[2024-02-24 20:16] LABS: HDL Cholesterol 46 mg/dl; LDL Cholesterol, Calculated 85 mg/dl; Total Cholesterol 163 mg/dl (50-199); Triglyceride 162 mg/dl (10-149); Very Low Density Lipoprotein 32 mg/dl (0-30)
[2024-02-24] MEDS: LOPRESSOR 12.5 MG PO (20:24)
[2024-02-24 23:15] VITALS: BP 142/84
[2024-02-25 03:00] VITALS: BP 130/65
[2024-02-25 07:00] VITALS: BP 138/91
[2024-02-25 08:33] LABS: ALT (SGPT) 56 U/L (0-50); AST (SGOT) 51 U/L (17-59); Albumin 3.3 g/dl (3.5-5.0); Alkaline Phosphatase 72 U/L (38-126); Blood Urea Nitrogen 9 mg/dl (9-20); Calcium 8.9 mg/dl (8.4-10.2); Carbon Dioxide 21 mmol/L (22-30); Chloride 108 mmol/L (98-107); Estimated Creatinine Clearance 64 ml/min; Glucose 107 mg/dl (70-99); Potassium 3.8 mmol/L (3.5-5.1); Sodium 137 mmol/L (135-145); Total Bilirubin 1.2 mg/dl (0.2-1.3); Total Protein 5.9 g/dl (6.3-8.2); eGFR > 60.00
[2024-02-25 08:34] LABS: % Basophils 0.8 % (0-2); % Eosinophils 1.9 % (0-6); % Immature Granulocytes 0.9 % (0-0.5); % Lymphocytes 15.9 % (20.5-51.1); % Monocytes 7.7 % (1.7-9.3); % Neutrophils 72.8 % (42.2-75.2); Absolute Basophils 0.1 10^3/uL (0-0.2); Absolute Eosinophils 0.2 10^3/uL (0-0.7); Absolute Immature Granulocytes 0.1 10^3/uL (0-0.05); Absolute Lymphocytes 1.3 10^3/uL (1.2-3.4); Absolute Monocytes 0.6 10^3/uL (0.1-0.6); Absolute Neutrophils 5.7 10^3/uL (1.4-6.5); Hematocrit 29.4 % (39.0-52.0); Hemoglobin 10.1 g/dL (13.0-18.0); Mean Corp Hgb Conc. 34.4 g/dL (33.0-37.0); Mean Corpuscular Hgb 31.1 pg (27.0-31.0); Mean Corpuscular Volume 90.5 fL (80.0-94.0); Mean Platelet Volume 9.2 fL (7.4-10.4); Nucleated Red Blood Cells % 0 % (-); Platelet Count 289 10^3/uL (130-400); Red Blood Cell Count 3.25 10^6/uL (4.70-6.10); Red Cell Dist. Width 15.4 % (11.5-14.5); White Blood Cell Count 7.9 10^3/uL (4.8-10.8)
--- NOTE | 2024-02-25 08:40 | W.PN.HOSP.TC ---
Addendum entered and electronically signed by Sp Roque MD 02/25/24 14:47:
Addendum
Patient is anxious to leave
d/w neurology, ok to do CTA as OP
Total discharge time spent to see patient, examine the patient on the floor, review data and lab results, discuss discharge plan with patient, nursing staff around 65 minutes
Original Note:
Today's Communication/Plan
-
.
Assessment / Plan
Assessment / Plan
Physical Exam
General: Well Developed, Well Nourished and No Apparent Distress
HEENT: Normocephalic, Moist mucous membranes and Atraumatic
Respiratory: Clear
Cardiac: S1/S2 , + murmur.
GI: Soft, Non Tender, Non Distended and Normal Bowel Sounds; No Organomegaly
Rectal: No rectal bleeding
Musculoskeletal: No Clubbing, No Cyanosis and No Edema
Skin: No Rash
Neuro: Nonfocal/grossly intact
Psych: calm, no agitation
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
His symptoms have resolved.
He feels mary
For MRI studies of head and neck
Carotid US in 02/2024 showed minimal carotid bulb plaque on each side, measurements suggestive of less than 50% stenosis on each side.
-Telemetry monitoring
-Continue aspirin, Plavix
- Added PT/OT/Speech
-Patient cannot have MRI until 6 weeks after TAVR
-Check A1c and lipid panel LDL 85
_ Appreciate neurology input.
# Mild transaminitis
Arelis bd pain
LFts coming down
-Likely from either daily alcohol intake
-Continue to monitor
#Severe aortic stenosis status post TAVR
CAD status post CABG x 2
-Continue metoprolol
-Continue as needed oxycodone for postsurgical pain
#Ischemic cardiomyopathy
-EF of 35 to 40%
#Essential hypertension
-Continue losartan
#Hyperlipidemia
-Continue statin
#Gout
#Alcohol use disorder
No signs of DVT
AAOX3
-2 beers daily
Diverticulosis
Chronic anemia
-Hemoglobin stable
Full code
DVT prophylaxis�SCDs
Regular diet
�Total time spent to see patient, examine the patient on the floor, review data and lab results, discuss treatment plan with patient, nursing staff around 55 minutes
Anticipated Discharge: 24 - 48 hours
Subjective/Interval History
-
Date of Service: February 25, 2024
He feels better
No chest pain or sob
no fevers
Objective Data
-
Labs:
Laboratory Results
02/25/24
07:54
WBC Pending
Hgb Pending
Hct Pending
Plt Count Pending
Sodium 137
Potassium 3.8
Chloride 108 H
Carbon Dioxide 21 L
BUN 9
Creatinine 0.9
Glucose 107 H
Calcium 8.9
Total Bilirubin 1.2
AST 51
ALT 56 H
Alkaline Phosphatase 72
Vital Signs:
Vital Signs
Temp Pulse Resp BP Pulse Ox
98.3 F 70 16 138/91 96
02/25/24 07:00 02/25/24 07:00 02/25/24 07:00 02/25/24 07:00 02/25/24 07:00
I&O
02/24/24 02/25/24 02/26/24
06:59 06:59 06:59
Intake Total 960 / 960
Balance 960 / 960
[2024-02-25] MEDS: LOPRESSOR 12.5 MG PO (08:45)
[2024-02-25] MEDS: COZAAR 25 MG PO (08:46)
[2024-02-25] MEDS: PLAVIX 75 MG PO (08:46)
[2024-02-25] MEDS: LOW STRENGTH ASPIRIN 81 MG PO (08:46)
[2024-02-25] MEDS: CRESTOR 20 MG PO (08:46)
[2024-02-25 09:15] VITALS: BP 163/95
--- NOTE | 2024-02-25 09:37 | PTOTSP ---
Patient is independent with functional mobility. No skilled PT needs at this time. Recommend return home at discharge.
[2024-02-25 10:34] LABS: Glycohemoglobin (HgbA1c) 5.3 % (4.0-5.6)
[2024-02-25 11:00] VITALS: BP 123/75
--- NOTE | 2024-02-25 12:29 | CON.NEURO4 ---
Consultation - Neurology 4
-
CONSULTING PHYSICIAN: Cinthya
REFERRING PHYSICIAN: Patito
DICTATED BY: Cinthya
DATE/TIME OF REQUEST: 02/24/24 in the evening
DATE/TIME OF CONSULTATION: 02/25/24 at 1300
Reason for Consultation: stroke
History of Present Illness:
68-year-old male with several vascular risk factors recently discharged from the hospital after a TAVR done on February 12, discharged on February 18 who came to the ED complaining of visual issues that he says he has had since being discharged. This
consists of blurred vision in both eyes and 'seeing sparkles out of his left eye.' He was sent to the ER by visiting nurses. His symptoms have since resolved. He is already on dual antiplatelet therapy. He cannot get MRI until 6 weeks after
TAVR. Head CT showed evidence of a subacute right occipital lobe stroke.
Past Medical History: severe aortic stenosis, CAD status post AVR and CABG x 2 recently, hypertension, hyperlipidemia, gout, diverticulosis, alcohol use disorder
Past Surgical History: CABG, TAVR
Social History
Tobacco: Non-smoker
Alcohol: Daily
Drug: None
Family History
Family History: Not pertinent
Allergies
No Known Allergies Allergy (Verified 02/24/24 12:25)
Home Medications
�Medication �Instructions �Recorded
Brain Health 1 dose PO DAILY Supplement 12/23/23
aspirin 81 mg chewable tablet 81 mg PO DAILY Blood Clot 12/23/23
Prevention/Tx
losartan 25 mg tablet 25 mg PO DAILY Blood Pressure 12/23/23
rosuvastatin 20 mg tablet 20 mg PO DAILY High Cholesterol 12/23/23
acetaminophen 325 mg tablet 650 mg (2 x 325 mg) PO Q4HPRN PRN 02/19/24
mild pain,headache,temp >101F #30
tabs
clopidogrel 75 mg tablet 75 mg PO DAILY #30 tabs 02/19/24
metoprolol tartrate 25 mg tablet 12.5 mg (1/2 x 25 mg) PO Q12 #30 02/19/24
tabs
oxycodone 5 mg tablet 5 mg PO Q4HPRN PRN moderate pain 02/19/24
#30 tabs
Review of Symptoms:
Patient denies any fever, headache, chest pain, shortness of breath, GI or symptoms.
�Per the HPI.�All systems are reviewed negative except above.
Vital Signs
Temp Pulse Resp BP Pulse Ox
97.9 F 69 16 123/75 99
02/25/24 11:00 02/25/24 11:00 02/25/24 11:00 02/25/24 11:00 02/25/24 11:00
Lab Results
02/25/24 07:54
02/25/24 07:54
Sodium 137 mmol/L (135-145) 02/25/24 07:54
Potassium 3.8 mmol/L (3.5-5.1) 02/25/24 07:54
BUN 9 mg/dl (9-20) 02/25/24 07:54
Glucose 107 mg/dl (70-99) H 02/25/24 07:54
Calcium 8.9 mg/dl (8.4-10.2) 02/25/24 07:54
LDL Cholesterol, Calc Cancelled 02/24/24 19:36
Physical Exam:
The patient is afebrile, heart sounds S1 and S2 are regular , and chest is clear to auscultation bilaterally.
NIH Stroke Scale:
I performed the NIH stroke scale on the patient on (date & time). The patient scored 0 points on the NIH stroke scale assessment.
Neurologic Examination:
The patient is awake, alert and oriented x 3. He is able to follow commands and answer questions appropriately. There is no aphasia or dysarthria. On cranial nerve assessment, pupils are 3 mm bilateral, round and reactive to light and
accommodation. Visual lagos are full. Extraocular movements are intact. Facial sensations are intact and bilaterally symmetrical, there is no facial asymmetry. Hearing is intact bilaterally to normal conversation volume. Tongue palate and uvula
are midline. Sternocleidomastoid strengths are full bilaterally. Motor strengths are 5/5 bilateral upper and lower extremities on medical research [place] scale. There is no drift or involuntary movement noted. Deep tendon reflexes are 2+ bilateral
upper and lower extremities and Babinski is absent bilaterally. Sensations of pain, touch, temperature and vibration are intact and bilaterally symmetrical. There was no extinction noted on double simultaneous stimulation. Coordination is intact by
finger to nose bilaterally.
Neuro Imaging:
2 cm subacute nonhemorrhagic infarct in the posterior medial aspect of the right occipital
There is moderate diffuse cortical atrophy with mild nonspecific white matter changes as described above.
KHADAR, 02/13/24:
Overall LVEF is approximately 35-40% with moderate global hypokinesis.
Moderate concentric left ventricular hypertrophy.
Trace mitral regurgitation.
Severe aortic stenosis.
Mild aortic insufficiency.
ALCIDES calculates to 0.8 cm2 by continuity equation.
Mild sessile atheroma seen in the descending aorta and distal arch.
Mid ascending aorta is mildly dilated measuring 3.6 cm at the level of the RPA.
Impression:
LAKSHMI GAN is a 68 year old M who has presented to the hospital with issues with his vision since he was discharged from the hospital on February 18 after TAVR. Symptoms have now resolved. Head CT showed a subacute posterior medial right
occipital lobe infarct.
Patient has the following risk factors for their symptoms: age, , CAD, htn, hld, ETOH use
IV Tenecteplase/IAT candidacy: not a candidate given resolution of symptoms
Recommendations:
-check CTA head/neck, cannot get MRI for 6 weeks after TAVR
-BP goal is normotension.
-continue DAPT for minimum 21 days but ultimately defer to cardiology/CT surgery; Crestor 20mg--increase to 40mg; LDL is 85, goal <70.
- Check hemoglobin A1C. Goal is normoglycemia.
- KHADAR done 02/13/24.
-PT/OT/ST evaluations
- DVT prophylaxis
-continue neurochecks
-f/u in neuro clinic in 2-3 mos
Discussed patient care with: ER, hospitalist, nursing
--- NOTE | 2024-02-25 12:52 | CM ---
Addendum entered by Wu Dozier 02/25/24 15:10:
Discharge order is noted.
Pt is aware, expressed his agreement with discharge and he stated his girlfriend will transport home.
D/C plan; home no needs.
Original Note:
CM following re: discharge planning.
Reviewed pt's chart, met with pt.
Pt is a 68 year old male, admitted with OBS status and primary dx of CVS. OBS status explained to the pt, OLIVEIRA letter signed, placed in chart, pt has a copy. pt has been upgraded to inpatient later today. IMM reviewed, placed in chart, pt has a
copy.
Patient reports he is independent of ADL, lives alone in a split level home, [address], 0 [address]. Patient with a supportive girlfriend and friend who live close. Plan is for the patient to return home.
PCP: per pt, [facility]
Pharmacy: [facility].
D/C plan: home with anticipated no needs. Friend to transport at discharge.
CM will follow with discharge plan updates as hospitalization progresses
--- NOTE | 2024-02-25 15:00 | PTCARENOTE ---
Patient ready for discharge per MD. Removed IV. Went over discharge instructions. Emphasized importance of follow-up, medication adherence. Patient awaiting ride.
--- NOTE | 2024-02-25 15:08 | W.DCSUMMARY ---
Discharge Summary
Discharge Data
Date of Admission: 02/25/24
Date of Discharge: 02/25/24
-
Pending Results: No
Hospital Course
68 years old male who was recently discharged from the hospital on February 18 after a TAVR done on February 12 presented to the emergency department complaining of visual issues that he had since discharged. He reported blurred vision in both eyes and
'seeing sparkles out of his left eye.' Symptoms resolved. Patient was taking dual antiplatelet therapy post cardiac surgery. Patient could not get magna raising imaging of the brain until 6 weeks after aortic valve repair surgery. Scan of the
head showed showed evidence of a subacute right occipital lobe stroke. Patient did not have recurrent vision. He did not have focal neurologic deficit. His blood pressure was under control. Patient had recent vascular ultrasound part of aortic
valve surgery that showed no critical carotid artery disease. Patient was evaluated by neurologist. Recommended to have scan angiogram of the head and neck. Patient was offered to do the test as inpatient. Patient was anxious to go because he
felt fine and wanted to follow-up with his doctor in the outpatient setting. Discharge instructions were discussed with neurologist. Patient was advised to continue on Plavix and aspirin and to follow-up with neurology in the office. Patient
remained hemodynamically stable and was discharged in stable condition.
Discharge Plan
-
Patient Disposition: Home with Home Care
Discharge Diagnosis/Procedures: subacute posterior medial right occipital lobe infarct
You are seen by neurologist. We recommended to continue aspirin and Plavix with a statin therapy.
Condition: Good
Diet: Low Sodium
Others Tests: CTA of head and neck
Referrals:
NONE,* [Family Provider] -
Rosalina Mendes, DO [Active] - in one month
Prescriptions:
Continued
losartan 25 mg Tablet
25 mg PO DAILY
aspirin 81 mg Tablet,Chewable
81 mg PO DAILY
rosuvastatin 20 mg Tablet
20 mg PO DAILY
Brain Health
1 dose PO DAILY
acetaminophen 325 mg Tablet
650 mg PO Q4HPRN PRN (Reason: mild pain,headache,temp >101F ) Qty: 30 0RF
clopidogrel 75 mg Tablet
75 mg PO DAILY Qty: 30 3RF
oxycodone 5 mg Tablet
5 mg PO Q4HPRN PRN (Reason: moderate pain) Qty: 30 0RF
metoprolol tartrate 25 mg Tablet
12.5 mg PO Q12 Qty: 30 2RF
Discharge Orders:
Discharge Patient (As Directed); Ordered 02/25/24
Ordered By: Sp Roque
Discharge Date and Time
Print Language: TURKISH
[2024-02-26 10:13] LABS: Glycohemoglobin (HgbA1c) 5.2 % (4.0-5.6)
== END 2024-02-25 15:20 | disposition home or self-care (01) | DRG 66 ==
LOC: 4 WEST ACU 09:35
PROVIDERS: Emergency Medicine; ADMITTING PHYSICIAN Hospitalist; ATTENDING PHYSICIAN Internal Medicine; CONSULT PHYSICIAN Psychiatry & Neurology Neurology; EMERGENCY PHYSICIAN Student in an Organized Health Care Education/Training Program
DX: I63.9 Cerebral infarction, unspecified (principal); H53.8 Other visual disturbances; I10 Essential (primary) hypertension; M10.9 Gout, unspecified; E78.5 Hyperlipidemia, unspecified; F10.10 Alcohol abuse, uncomplicated; K57.30 Diverticulosis of large intestine without perforation or abscess without bleeding; R74.01 Elevation of levels of liver transaminase levels; I25.10 Atherosclerotic heart disease of native coronary artery without angina pectoris; I25.5 Ischemic cardiomyopathy; D64.9 Anemia, unspecified; Z95.1 Presence of aortocoronary bypass graft; Z95.2 Presence of prosthetic heart valve; Z79.02 Long term (current) use of antithrombotics/antiplatelets; Z79.82 Long term (current) use of aspirin
CPT/HCPCS: 70450; 80053; 80061; 83036; 85025; 97162; 99284